=== PATIENT | female | born 1950 | race Caucasian/White ===

== ENCOUNTER → 2017-05-03 | Outpatient (CLI) | payer MEDICARE, OTHER | END | disposition home or self-care (01) | LOC: LABWHC1 08:58 | PROVIDERS: ATTEND Orthopaedic Surgery | DX: Z01.812 Encounter for preprocedural laboratory examination (principal) | CPT/HCPCS: 87070 ==

== ENCOUNTER → 2017-05-19 | Outpatient (CLI) | payer MEDICARE, OTHER ==
[2017-05-19 13:19] LABS: CHCM 33.8; HCT 39.8 % (34.0-46.0); HDW 2.57; HGB 13.5 gm/dL (11.4-16.0); MCH 30.2 pg (25.0-35.0); MCHC 33.9 g/dL (31.0-37.0); MCV 89.1 fL (80.0-100.0); Mean Platelet Volume 6.5; RBC 4.46 m/uL (3.80-5.40); WBC 7.3 k/uL (3.8-10.6)
[2017-05-19 13:27] LABS: Appearance,Urine Clear (Clear); Bilirubin,Urine Negative (Negative); Glucose,Urine (UA) Negative (Negative); Ketones,Urine Negative (Negative); Leukocyte Esterase,Urine Trace (Negative); Mucus,Urine Rare /hpf; Nitrite,Urine Negative (Negative); Particle Count 827; Protein,Urine Negative (Negative); Specific Gravity,Urine 1.008 (1.001-1.035); Squamous Epithelial Cell,Urine <1 /hpf (0-4); UA Billing (MACRO vs. MICRO) MICRO; Urobilinogen,Urine <2.0 mg/dL (<2.0); WBC,Urine 1 /hpf (0-5)
[2017-05-19 13:28] LABS: INR 1.1 (<1.2); Partial Thromboplastin Time 23.6 sec (22.0-30.0); Prothrombin Time 10.7 sec (9.0-12.0)
[2017-05-19 13:35] LABS: ALT 39 U/L (9-52); AST 25 U/L (14-36); Alkaline Phosphatase 78 U/L (38-126); Anion Gap 10 mmol/L; Blood Urea Nitrogen 19 mg/dL (7-17); Calcium 10.2 mg/dL (8.4-10.2); Carbon Dioxide 27 mmol/L (22-30); Chloride 104 mmol/L (98-107); Glucose 95 mg/dL (74-99); Non-African American GFR(MDRD) >60 (>60 ml/min/1.73 sqM); Potassium 4.4 mmol/L (3.5-5.1); Sodium 141 mmol/L (137-145); Total Bilirubin 0.6 mg/dL (0.2-1.3); Total Protein 7.3 g/dL (6.3-8.2)
== END | disposition home or self-care (01) ==
LOC: LABPAT 12:43
PROVIDERS: ATTEND Orthopaedic Surgery
DX: Z01.812 Encounter for preprocedural laboratory examination (principal); Z79.01 Long term (current) use of anticoagulants
CPT/HCPCS: 80053; 81001; 85027; 85610; 85730; 86850; 86900; 86901

== ENCOUNTER 2017-05-29 10:26 | Inpatient (IN) | payer BC, MEDICARE, OTHER ==
[2017-05-22 08:58] VITALS: BMI 26.5
[~2017-05-29 10:26] MED LIST: ACETAMINOPHEN TAB 500 MG TAB PO ONE; DEXAMETHASONE SOD PHOSPHATE 10 MG/ML 1 ML VIAL IV ONE; HYDROmorphone 1 MG/ML 1 ML SYRINGE IVP PRN; LACTATED RINGERS 1,000 ML IV SCH; MELOXICAM 7.5 MG TAB PO ONE; MIDAZOLAM 2 MG/2 ML VIAL IV PRN; ONDANSETRON 4 MG/2 ML VIAL IVP ONE; SCOPOLAMINE 1.5MG/72HR PATCH TRANSDERM ONE; TRANEXAMIC ACID 1,000 MG in SODIUM CHLORIDE 0.9% 100 ML IVPB ONE; ceFAZolin 2 GM in SODIUM CHLORIDE 0.9% 100 ML IVPB ONE
[2017-05-29 11:16] LABS: Glucose,Whole Blood 115 mg/dL (75-99)
[2017-05-29] MEDS ORDERED: LIDOCAINE 1% 20 ML VIAL (10MG/ML) FOR IV START INTRADERMA ONE (11:27)
[2017-05-29] MEDS ORDERED: SODIUM CHLORIDE 0.9% 100 ML BAG ONE (12:59)
[2017-05-29] MEDS ORDERED: TRANEXAMIC ACID 1,000 MG/10 ML VIAL ONE (12:59)
[2017-05-29] MEDS ORDERED: fentaNYL (PF) 50 MCG/ML 2 ML AMP ONE (12:59)
[2017-05-29] MEDS ORDERED: ceFAZolin 3,000 MG in SODIUM CHLORIDE 0.9% IRRIGATIO 3,000 ML IRRIGATION ONE (12:59)
[2017-05-29] MEDS ORDERED: MIDAZOLAM 2 MG/2 ML VIAL ONE (12:59)
[2017-05-29] MEDS ORDERED: PROPOFOL 10 MG/ML 20 ML VIAL IV ONE (12:59)
[2017-05-29] MEDS ORDERED: LACTATED RINGERS 1,000 ML IV ONE (13:37)
[2017-05-29] MEDS ORDERED: HYDROcodone/APAP 5-325MG 1 EACH TAB PO PRN (15:08)
[2017-05-29] MEDS ORDERED: hydrOXYzine PAMOATE 25 MG CAP PO PRN (15:08)
[2017-05-29] MEDS ORDERED: NALOXONE 0.4 MG/ML 1 ML VIAL IV PRN (15:08)
[2017-05-29] MEDS ORDERED: ONDANSETRON 4 MG/2 ML VIAL IVP PRN (15:08)
[2017-05-29] MEDS ORDERED: MAGNESIUM HYDROXIDE 2,400 MG/10 ML CUP PO PRN (15:08)
[2017-05-29] MEDS ORDERED: HYDROmorphone 1 MG/ML 1 ML SYRINGE IVP PRN ×3 (15:08)
--- NOTE | 2017-05-29 15:36 | XR ---
EXAMINATION TYPE: XR Hip Limited LT DATE OF EXAM: 05/29/2017 CLINICAL HISTORY: Left hip pain and osteoarthritis. TECHNIQUE: Single AP portable view of left hip is obtained immediately postoperatively. COMPARISON: None. FINDINGS: Metallic hardware from total left hip arthroplasty is seen and appears satisfactory in alig nment and position. There is evidence of recent surgery with subcutaneous gas noted laterally. IMPRESSION: Metallic hardware from total left hip arthroplasty is satisfactory in position.
[2017-05-29] MEDS: LACTATED RINGERS 1,000 ML IV SCH (15:49)
[2017-05-29 16:03] LABS: Glucose,Whole Blood 149 mg/dL (75-99)
--- NOTE | 2017-05-29 18:07 | P.OP ---
Date of Procedure: 05/29/17 Preoperative Diagnosis: Postoperative Diagnosis: Procedure(s) Performed: PREOPERATIVE DIAGNOSIS: Left hip severe osteoarthritis POSTOPERATIVE DIAGNOSIS: Left hip severe osteoarthritis OPERATION: Left hip total replacement arthroplasty (uncemented implantation with ceramic on polyethylene articulation). ANESTHESIA: Spinal ESTIMATED BLOOD LOSS: 250 ml. DATA CENTER PROJECT MANAGER: Jacqueline Adams PA-C (assistance with: patient positioning, retraction, exposure, hemostasis, leg positioning, implantation, irrigation, closure, dressing) COMPLICATIONS: None apparent. COMPONENTS IMPLANTED: Ameya continuum acetabular cup with cluster holes; continuum longevity 15 elevated liner, 32 mm id; Ameya VerSys Fiber Metal stem ; VerSys 32 mm femoral head with +7 mm neck length extension INDICATIONS: Mrs. Santos is a 67-year-old female with significant end-stage osteoarthritis involving the left hip and commensurate severe symptoms. She presents to the operating room today for total hip replacement. I have discussed the steps of the operation as well as potential risks and complications as being inclusive of, but not limited to: Leading, infection, scarring, discomfort, or vessel and/or nerve damage, need for further surgery, loosening, dislocation, wear, osteolysis, limb length inequality, fracture, blood clot, pulmonary embolism, , persistent limp, and other risks. The patient is aware these risks and wishes to proceed with surgery and has signed a consent form. PROCEDURE: After appropriate consent was obtained, the patient was taken to the operating room and placed in supine position. Spinal anesthetic was administered and after confirmation of adequate anesthesia, the patient was placed into the lateral decubitus position with the left side up. Care was taken to make sure that all pressure points were adequately padded and he was stabilized to the table with a [place] hip positioner. The left hip was prepped and draped in the usual aseptic fashion using a combination of ChloraPrep and alcohol. [place]an drape was used for the case and the patient received intravenous antibiotics prior to the incision. "Time out" was called , confirming patient identity, side, procedure, availability of implants and administration of antibiotics and TXA. The incision was created directly over the greater trochanter and carried slightly posteriorly for a posterior approach to the hip. The incision was then deepened down to subcutaneous tissue and fascia era. Fascia era was split in line with the incision and split proximally along the fibers of the gluteus moises. The underlying fibers of the muscle were teased apart using finger dissection and bleeding vessels were picked up and coagulated. Retractor was then placed posteriorly consisting of a blunt [place]. The short external rotators and capsule were exposed using good visualization of the attachment of the external rotators to the femur was established. The short external rotators and capsule were released using electrocautery from their femoral attachments. A hockey stick shaped incision was created in the capsule. Joint fluid was evacuated and the patient's hip was able to be dislocated fairly easily. The patient's femoral head was severely arthritic with eburnated bone present and a 360 degrees brennan of osteophytes. The femoral neck cut was created approximately 1 cm superior to the lesser trochanter using a reciprocating saw. The femoral head and neck fragment was removed and attention was then directed to the acetabulum. An anterior acetabular retractor was applied followed by posterior retraction of the capsule with a Meyerding retractor. This afforded good visualization into the acetabular cavity. Soft tissue was removed and residual cartilage within the acetabular vault was removed using a curette. Labrum was removed using a long-handled knife. Attention was then directed to reaming. The size 44 reamer was used first, followed by increasing increments until the final size reamer was used. Please see the implantation sheet for exact sizes used for the components. Once the final reamer had been utilized to expand the socket it was noted that there was a good supportive bone around the acetabular socket and no further reaming needed to be performed. The trial the same size as the last reamer used was then impacted into the acetabular vault and found to have good fit. The acetabular component, one size (2mm) greater than the trial was then called for. The cluster holes were placed posteriorly and the component was impacted in a position of approximately 40 degrees abduction and 20 degrees anteversion. This matched this patient's torres martinez anteversion and it was noted that the cup had excellent stability but I felt that one acetabular screw would provide additional security. This was placed without difficulty into one of the posterior superior holes. Attention was then directed to the acetabular liner. The anteversion and abduction angle of the component was noted to be very good. A 15 elevated was used and locked into position. Osteophytes around the posterior and inferior aspect of the acetabulum were trimmed as necessary to prevent any impingement. Attention was then directed back to the proximal femur. Retractors were placed around the proximal femur and box osteotome was used followed by canal finder and trochanteric reamer. Cylindrical reaming was performed. Progressive broaching was then performed starting with a #10 broach and progressing final size, in a position of 15 degrees anteversion. [place] anteversion was within 5 degrees of stem position. The final size broach had excellent fit and fill of the patient's metaphysis and diaphysis. Calcar planing was performed. Trial reduction was then performed starting with size 32 mm femoral head and various neck combination of stability, limb length equality, and soft tissue tension. Trial components were then removed. The canal was lavaged and the final size femoral stem component was impacted into position. The implant fit very well and had excellent stability. The femoral head was then impacted onto the Ramsey taper. Blood and debris were removed from the acetabular component and the hip was then reduced and checked for stability, limb length and soft tissue tension. These parameters found to be satisfactory, the wound was then thoroughly irrigated with normal saline and Aricept protocol. Final hemostasis was obtained using electrocautery and IV tranexamic acid, 1 g given at the time of prepping and draping, and another 1 g given at the time of closure. Closure of the capsule was performed meticulously using #3 Vicryl suture. Four figure-of -eight sutures were placed in the posterior capsule along with repair of the external rotators. The fascia era was then repaired using combination of #3 Vicryl suture in interrupted fashion and Quill and running fashion. 2-0 Vicryl suture was used for the subcutaneous tissues and 3-0 Quill for the skin. Dermabond or Steri-Strips were then applied. The patient tolerated the procedure well. There were no complications and the wound bed was dry and there was no need for drain placement. Sterile dressing was then applied and the patient was carefully removed from the operating room table, placed on the stretcher and was taken to the recovery room in stable condition. Sponge and needle counts were correct. Implants: Indications for Procedure: Operative Findings: Description of Procedure:
[2017-05-29 20:28] LABS: Glucose,Whole Blood 212 mg/dL (75-99)
[2017-05-29] MEDS: NAPROXEN 250 MG TAB PO SCH (21:28)
[2017-05-29] MEDS: SENNOSIDES-DOCUSATE SODIUM 1 EACH TAB PO SCH (21:31)
[2017-05-29] MEDS: ASPIRIN 325 MG TAB PO SCH (21:32)
[2017-05-29] MEDS: HYDROcodone/APAP 5-325MG 1 EACH TAB PO PRN (21:33)
[2017-05-29] MEDS: METOPROLOL SUCCINATE (ER) 25 MG TAB.ER.24H PO SCH (21:33)
[2017-05-29] MEDS: PRAVASTATIN SODIUM 40 MG TAB PO SCH (21:33)
[2017-05-29] MEDS: ceFAZolin 2 GM in SODIUM CHLORIDE 0.9% 100 ML IVPB SCH (21:34)
[2017-05-29] MEDS: INSULIN LISPRO (humaLOG) 300 UNIT/3 ML VIAL SQ SCH (21:36)
[2017-05-30] MEDS: LACTATED RINGERS 1,000 ML IV SCH ×3 (02:23→22:33)
[2017-05-30] MEDS: ceFAZolin 2 GM in SODIUM CHLORIDE 0.9% 100 ML IVPB SCH (04:38)
[2017-05-30 06:59] LABS: Glucose,Whole Blood 155 mg/dL (75-99)
[2017-05-30 07:48] LABS: Basophils % (A) 0 %; CH 29.4; CHCM 33.2; Eosinophils % (A) 0 %; HCT 32.2 % (34.0-46.0); HDW 2.58; HGB 10.7 gm/dL (11.4-16.0); Luc # (Auto) 0.09; Luc % (Auto) 1; Lymphocytes # (A) 1.1 k/uL (1.0-4.8); Lymphocytes % (A) 8 %; MCH 29.6 pg (25.0-35.0); MCHC 33.3 g/dL (31.0-37.0); MCV 88.9 fL (80.0-100.0); Mean Platelet Volume 6.5; Monocytes # (A) 0.5 k/uL (0-1.0); Monocytes % (A) 4 %; Neutrophils # (A) 12.5 k/uL (1.3-7.7); Neutrophils % (A) 87 %; RBC 3.62 m/uL (3.80-5.40); RDW 13.5 % (11.5-15.5); WBC 14.3 k/uL (3.8-10.6); WBC (Perox) 14.75
[2017-05-30] MEDS: clonazePAM 0.5 MG TAB PO SCH (08:02)
[2017-05-30] MEDS: NAPROXEN 250 MG TAB PO SCH ×2 (08:03→21:18)
[2017-05-30] MEDS: MELOXICAM 7.5 MG TAB PO SCH (08:03)
[2017-05-30] MEDS: ASPIRIN 325 MG TAB PO SCH ×2 (08:03→21:18)
[2017-05-30] MEDS: INSULIN LISPRO (humaLOG) 300 UNIT/3 ML VIAL SQ SCH ×4 (08:04→21:20)
[2017-05-30] MEDS: amLODIPine 5 MG TAB PO SCH (08:04)
[2017-05-30] MEDS: DULoxetine HCL 30 MG CAPSULE.DR PO SCH (08:04)
[2017-05-30] MEDS: HYDROcodone/APAP 5-325MG 1 EACH TAB PO PRN ×2 (08:54→15:40)
--- NOTE | 2017-05-30 09:44 | CONS ---
DATE OF CONSULTATION: 05/29/2107 REASON FOR CONSULTATION: Medical management requested by Dr. Whyte. CONSULTATION: This is a very pleasant 67-year-old patient whose chronic stable medical conditions include hypertension, hyperlipidemia, obstructive sleep apnea , uses CPAP machine, osteoarthritis. Patient also with diet controlled diabetic. The patient has undergone left total hip arthroplasty. Postprocedure the pain is controlled. No nausea, no vomiting. No chest pain. Patient has had a stress test recently that was negative. Denied any cardiac or respiratory symptoms. REVIEW OF SYSTEMS: CONSTITUTIONAL: None. HEENT: None. RESPIRATORY: None. CARDIOVASCULAR: None. GASTROINTESTINAL: None. GENITOURINARY: None. MUSCULOSKELETAL: Pain in the joints. DERMATOLOGICAL: None. HEMATOLOGICAL: None. LYMPHATIC: None. PSYCHIATRY: None. NEUROLOGICAL: None. PAST HISTORY: Hypertension, hyperlipidemia, obstructive sleep apnea, osteoarthritis, diet controlled diabetes. PAST SURGICAL HISTORY: Appendectomy, cholecystectomy, surgery for ruptured ovarian cyst, bowel surgery to remove scar tissue. SOCIAL HISTORY: Smoked a pack for 10 years. Stopped 30-years ago. . Alcohol rarely. FAMILY HISTORY: Reviewed. Cancer, type unknown. HOME MEDICATIONS: 1. Klonopin 0.5 mg daily. 2. Norvasc 5 mg p.o daily. 3. Pravachol 40 mg q.h.s 4. Aleve 220 mg bid 5. Centrum 1 tablet p.o daily. 6. Toprol XL 25 mg q.h.s 7. Cymbalta 30 mg p.o daily. 8. Cranberry 500 mg p.o daily. 9. Cinnamon 2000 mg p.o daily. 10. Aspirin 81 mg p.o daily. 11. Senokot S 1 tablet p.o bid 12. [place] 5 p.r.n ALLERGIES: None. On examination, temperature 98, pulse 54, respirations 16, blood pressure 115/57 , pulse ox 95% on room air. GENERAL APPEARANCE: Average build, lying in bed comfortable, awake. EYES: Pupils equal, conjunctivae normal. HEENT: Oral cavity normal. NECK: JVD not raised. Mass not palpable. RESPIRATORY: Effort normal. LUNGS: Clear. CARDIOVASCULAR: Fist and second sounds are normal. No edema. ABDOMEN: Soft, nontender. Liver and spleen not palpable. LYMPHATIC: No lymph node in neck or axillae. PSYCHIATRIC: Alert, oriented x3. Mood and affect normal. NEUROLOGICAL: Pupils equal. Cranial nerves grossly intact. Power and sensation grossly intact. EXTREMITIES: Dressing over the left hip. ( ) especially in the hands. INVESTIGATIONS: Accu-Cheks 115, 149. Patients blood work from 05/19/17 showed hemoglobin 13.5, potassium 4.4, BUN 19, creatinine 0.70. ASSESSMENT: 1. Left total hip arthroplasty. 2. Essential hypertension. 3. Hyperlipidemia. 4. Obstructive sleep apnea uses CPAP machine. 5. Primary osteoarthritis with multiple joints. 6. Diet controlled diabetes mellitus type 2. PLAN: Home medications are resumed. For DVT prophylaxis the patient has Venodyne boots in place and anticoagulation per Orthopedic Team. Care was discussed with the patient. Questions were answered. Patient has a CPAP machine from home. Resume the same. Thank you Dr. Whyte. WANDER
[2017-05-30 11:43] LABS: Glucose,Whole Blood 158 mg/dL (75-99)
[2017-05-30 11:53] LABS: Hemoglobin A1C 6.1 % (4.2-6.1)
[2017-05-30] MEDS ORDERED: MULTIVITAMINS, THERA 1 EACH TAB PO SCH (12:00)
--- NOTE | 2017-05-30 12:01 | P.PN ---
Subjective Principal diagnosis: Status post left total hip arthroplasty This is a pleasant 67-year-old female who is status post left total hip arthroplasty. This is postoperative day #1. Patient was examined at bedside. Patient states her pain is well controlled and she has been up and walking with physical therapy without difficulty. Patient denies any numbness, weakness or tingling. Patient denies any new complaints. Objective - Vital Signs Vital signs: Vital Signs Temp 98.1 F 05/30/17 07:00 Pulse 55 L 05/30/17 07:00 Resp 16 05/30/17 07:00 BP 112/60 05/30/17 07:00 Pulse Ox 95 05/30/17 10:09 Intake & Output 05/29/17 05/30/17 05/30/17 18:59 06:59 18:59 Intake Total 1301 480 Output Total 250 450 Balance 1051 -450 480 Weight 83.915 kg Intake: IV 1301 Oral 480 Output: Urine 450 Estimated Blood Loss 250 Other: Voiding Method Toilet Toilet # Voids 1 - Exam Vital signs are stable. Patient is in no acute distress and is alert and oriented 3. Calf is soft and nontender. Incision is clean, dry, and intact. Neurovascular status intact. Patient has full foot and ankle motion. - Labs CBC & Chem 7: 05/30/17 06:45 Labs: Abnormal Lab Results - Last 24 Hours (Table) 05/29/17 05/29/17 05/30/17 Range/Units 16:01 20:21 06:45 WBC 14.3 H (3.8-10.6) k/uL RBC 3.62 L (3.80-5.40) m/uL Hgb 10.7 L (11.4-16.0) gm/dL Hct 32.2 L (34.0-46.0) % Neutrophils # 12.5 H (1.3-7.7) k/uL POC Glucose (mg/dL) 149 H 212 H (75-99) mg/dL 05/30/17 05/30/17 Range/Units 06:55 11:31 WBC (3.8-10.6) k/uL RBC (3.80-5.40) m/uL Hgb (11.4-16.0) gm/dL Hct (34.0-46.0) % Neutrophils # (1.3-7.7) k/uL POC Glucose (mg/dL) 155 H 158 H (75-99) mg/dL Assessment and Plan (1) S/P total hip arthroplasty Status: Acute (2) Primary osteoarthritis of left hip Status: Acute Plan: Continue routine postop care. Continue antocoagulation. Weightbearing as tolerated with a walker Continue hip precautions and use of abductor pillow. Daily dressing changes, keep incision clean and dry Possible discharge home tomorrow.
--- NOTE | 2017-05-30 17:19 | P.CONS ---
History of Present Illness - Reason for Consult Consult date: 05/30/17 Prophylactic radiation Requesting physician: Mario Whyte - Chief Complaint Recent Surgery - History of Present Illness Mrs. Santos is a 67-year-old female with significant end-stage osteoarthritis involving the left hip. She underwent left hip total replacement arthroplasty and is postoperative day #1. Patient states her pain is well controlled and she has been up and walking with physical therapy without difficulty. Patient denies any numbness, weakness or tingling. Patient denies any new complaints. Review of Systems Constitutional: Reports as per HPI Eyes: denies blurred vision, denies pain Musculoskeletal: Reports gait dysfunction, Reports limitation of motion, Reports redness of joints, Denies myalgias Musculoskeletal: left: hip pain, hip stiffness, hip swelling Neurological: Denies numbness, Denies weakness Past Medical History Past Medical History: Hyperlipidemia, Hypertension, Sleep Apnea/CPAP/BIPAP Additional Past Medical History / Comment(s): arthritis, diet control diabetic, bulging disk History of Any Multi-Drug Resistant Organisms: None Reported Past Surgical History: Appendectomy, Cholecystectomy, Orthopedic Surgery Additional Past Surgical History / Comment(s): surgery for ruptured ovarian cyst , bowel surgery to remove scar tissue, rt knee arthroscopy Past Anesthesia/Blood Transfusion Reactions: Blood Transfusion Reaction, Motion Sickness Additional Past Anesthesia/Blood Transfusion Reaction / Comm: GOT BAD HIVES AND ITCHING FROM BLOOD TRANSFUSION YEARS AGO. Past Psychological History: No Psychological Hx Reported Smoking Status: Former smoker Past Alcohol Use History: Rare Additional Past Alcohol Use History / Comment(s): quit smoking 30 yrs ago, smoked for 10 yrs, <1 PPD Past Drug Use History: None Reported - Past Family History Sister(s) Family Medical History: Cancer Medications and Allergies Home Medications Medication Instructions Recorded Confirmed Type DULoxetine HCL [Cymbalta] 30 mg PO DAILY 04/15/14 05/29/17 History Metoprolol Succinate [Toprol XL] 25 mg PO HS 04/15/14 05/29/17 History Multivitamin/Iron/Folic Acid 1 tab PO DAILY 04/15/14 05/29/17 History [Centrum Complete Multivit Tab] Pravastatin Sodium [Pravachol] 40 mg PO HS 04/15/14 05/29/17 History amLODIPine BESYLATE [Norvasc] 5 mg PO DAILY 04/15/14 05/29/17 History clonazePAM [KlonoPIN] 0.5 mg PO QAM 04/15/14 05/29/17 History Aspirin [Adult Low Dose Aspirin EC] 81 mg PO DAILY 05/22/17 05/29/17 History Cinnamon Bark [Cinnamon] 2,000 mg PO DAILY 05/22/17 05/29/17 History Cranberry Fruit Extract [Cranberry] 500 mg PO DAILY 05/22/17 05/29/17 History Naproxen Sodium [Aleve] 220 mg PO BID 05/22/17 05/29/17 History Allergies Allergy/AdvReac Type Severity Reaction Status Date / Time No Known Allergies Allergy Verified 05/29/17 15:29 Physical Exam Vitals: Vital Signs Temp Pulse Resp BP Pulse Ox 05/30/17 14:27 97.4 F L 58 L 17 127/57 96 05/30/17 10:09 95 05/30/17 07:00 98.1 F 55 L 16 112/60 96 05/30/17 01:18 98.1 F 61 16 121/69 96 05/29/17 20:05 97.9 F 67 16 146/71 96 05/29/17 17:41 64 116/62 05/29/17 17:30 59 L 137/51 05/29/17 17:15 67 129/57 Intake and Output 05/30/17 05/30/17 05/30/17 06:59 14:59 22:59 Intake Total 1220 Balance 1220 Intake: Oral 1220 Other: Voiding Method Toilet # Voids 1 - Constitutional General appearance: average body habitus - EENT Eyes: EOMI - Respiratory Respiratory: bilateral: CTA - Cardiovascular Rhythm: regular Heart sounds: normal: S1, S2 Results CBC & Chem 7: 05/30/17 06:45 Labs: Abnormal Lab Results - Last 24 Hours (Table) 05/29/17 05/30/17 05/30/17 Range/Units 20:21 06:45 06:55 WBC 14.3 H (3.8-10.6) k/uL RBC 3.62 L (3.80-5.40) m/uL Hgb 10.7 L (11.4-16.0) gm/dL Hct 32.2 L (34.0-46.0) % Neutrophils # 12.5 H (1.3-7.7) k/uL POC Glucose (mg/dL) 212 H 155 H (75-99) mg/dL 05/30/17 Range/Units 11:31 WBC (3.8-10.6) k/uL RBC (3.80-5.40) m/uL Hgb (11.4-16.0) gm/dL Hct (34.0-46.0) % Neutrophils # (1.3-7.7) k/uL POC Glucose (mg/dL) 158 H (75-99) mg/dL Assessment and Plan Plan: Ms. Santos is a pleasant 67 year old female status post left hip arthroplasty who now presents for external beam radiation to the left hip and surrounding tissues to decrease her risk of heterotrophic ossification. Post operative RT has been shown to be an effective treatment in preventing abnormal ossification of bone resulting in an ankylosed joint. We therefore intend to deliver a single fraction of 700cGy with 23MV photons in an AP/PA field arrangement. A discussion of the risks and side effects of therapy were had, but not limited to : Skin redness, irritation, fertility changes, and risk of second malignancy. Patient was informed have she questions or concerns she can see us at any time.
[2017-05-30 18:03] LABS: Glucose,Whole Blood 120 mg/dL (75-99)
--- NOTE | 2017-05-30 18:17 | PN ---
DATE OF SERVICE: 05/30/2017 PRESENTING COMPLAINT: Left hip surgery. INTERVAL HISTORY: This patient is status post left total hip arthroplasty; stable. Did tolerate her diet. No nausea or vomiting. No chest pain. Some pain is present. Sitting up on a chair. Review of systems done for constitutional, cardiovascular, GI, pulmonary, musculoskeletal; relevant findings as above. Current medications are reviewed. On examination, temperature 98.1, pulse 55, respiration 16, blood pressure 112/ 60, pulse ox 96% on room air. GENERAL APPEARANCE: Sitting up on a chair, comfortable. EYES: Pupils equal. Conjunctivae normal. NECK: JVD not raised. Mass not palpable. RESPIRATORY: Effort normal. Lungs are clear. CARDIOVASCULAR: First and second sounds normal. No edema. ABDOMEN: Soft, non-tender. Liver and spleen not palpable. PSYCHIATRIC: Alert and oriented x3. Mood and affect normal. INVESTIGATIONS: White count 14.3, hemoglobin 10.7. ASSESSMENT: 1. Left total hip arthroplasty. 2. Essential hypertension. 3. Hyperlipidemia. 4. Obstructive sleep apnea; uses CPAP machine. 5. Primary osteoarthritis of multiple joints. 6. Diet-controlled diabetes mellitus, type 2. 7. Leukocytosis, reactive, from surgery. No evidence of infection. 8. Acute blood loss anemia, as expected from surgery. PLAN: Continue current medications and treatment plan. Care was discussed with the patient. Encouraged to ambulate. MTDD
[2017-05-30 20:11] LABS: Glucose,Whole Blood 139 mg/dL (75-99)
[2017-05-30] MEDS: METOPROLOL SUCCINATE (ER) 25 MG TAB.ER.24H PO SCH (21:18)
[2017-05-30] MEDS: PRAVASTATIN SODIUM 40 MG TAB PO SCH (21:19)
[2017-05-30] MEDS: SENNOSIDES-DOCUSATE SODIUM 1 EACH TAB PO SCH (21:19)
[2017-05-30] MEDS ORDERED: TEMAZEPAM 15 MG CAP PO PRN (22:00)
[2017-05-31 07:19] LABS: Glucose,Whole Blood 111 mg/dL (75-99)
[2017-05-31 08:06] VITALS: BP 117/56; RESP 18; TEMP 97.9
[2017-05-31] MEDS: clonazePAM 0.5 MG TAB PO SCH (08:07)
[2017-05-31] MEDS: MELOXICAM 7.5 MG TAB PO SCH (08:07)
[2017-05-31] MEDS: NAPROXEN 250 MG TAB PO SCH (08:07)
[2017-05-31] MEDS: ASPIRIN 325 MG TAB PO SCH (08:07)
[2017-05-31] MEDS: DULoxetine HCL 30 MG CAPSULE.DR PO SCH (08:07)
[2017-05-31] MEDS: amLODIPine 5 MG TAB PO SCH (08:08)
[2017-05-31] MEDS: HYDROcodone/APAP 5-325MG 1 EACH TAB PO PRN (08:08)
[2017-05-31] MEDS: INSULIN LISPRO (humaLOG) 300 UNIT/3 ML VIAL SQ SCH (08:08)
--- NOTE | 2017-05-31 09:05 | P.DS ---
Providers Date of admission: 05/29/17 10:40 Expected date of discharge: 05/31/17 Attending physician: Mario Whyte Consults: 05/29/17 15:18 Consult Physician Urgent Consulting Provider: Liban Mcgrath Consult Reason/Comments: radiation tx left hip Do you want consulting provider notified?: Yes Consult Physician Urgent Consulting Provider: Schuyler Felder Consult Reason/Comments: medical management Do you want consulting provider notified?: Yes Primary care physician: Enoc Santizo - Discharge Diagnosis(es) (1) Primary osteoarthritis of left hip Current Visit: Yes Status: Acute (2) S/P total hip arthroplasty Current Visit: Yes Status: Acute Hospital Course: This is a 67-year-old female with known history of degenerative arthritis of the left hip. The patient presents for evaluation. After discussion and consideration patient elects to proceed with total hip arthroplasty. The patient is seen preoperatively by Dr. Santizo and cleared for surgery. Patient is admitted to [facility] on 05/29/2017 for total hip arthroplasty. The procedures performed without complication or sequelae. The patient is doing well postoperatively. She had 1 dose of radiation to the left hip for heterotopic ossification prophylaxis. Labs and vital signs are stable on day of discharge. On day of discharge patient's hip incision is healing well. There is minimal erythema. There is no drainage noted at this time. There is minimal soft tissue swelling to the hip and thigh. Patient has full foot and ankle motion without difficulty or pain. Neurovascular status to the left lower extremity is intact. Patient is discharged to home in good condition. Please see med rec for accurate list of home medications. Patient Condition at Discharge: Good Plan - Discharge Summary New Discharge Prescriptions: New Aspirin 325 mg PO BID #120 tab HYDROcodone/APAP 5-325MG [[place] 5-325] 1 - 2 each PO Q4-6H PRN #90 tab PRN Reason: Pain Sennosides-Docusate Sodium [Senokot-S] 1 tab PO BID #60 tablet No Action DULoxetine HCL [Cymbalta] 30 mg PO DAILY amLODIPine BESYLATE [Norvasc] 5 mg PO DAILY Pravastatin Sodium [Pravachol] 40 mg PO HS Metoprolol Succinate [Toprol XL] 25 mg PO HS clonazePAM [KlonoPIN] 0.5 mg PO QAM Multivitamin/Iron/Folic Acid [Centrum Complete Multivit Tab] 1 tab PO DAILY Aspirin [Adult Low Dose Aspirin EC] 81 mg PO DAILY Naproxen Sodium [Aleve] 220 mg PO BID Cinnamon Bark [Cinnamon] 2,000 mg PO DAILY Cranberry Fruit Extract [Cranberry] 500 mg PO DAILY Discharge Medication List DULoxetine HCL [Cymbalta] 30 mg PO DAILY 04/15/14 [History] Metoprolol Succinate [Toprol XL] 25 mg PO HS 04/15/14 [History] Multivitamin/Iron/Folic Acid [[place] Complete Multivit Tab] 1 tab PO DAILY [History] Pravastatin Sodium [Pravachol] 40 mg PO HS 04/15/14 [History] amLODIPine BESYLATE [Norvasc] 5 mg PO DAILY 04/15/14 [History] clonazePAM [KlonoPIN] 0.5 mg PO QAM 04/15/14 [History] Aspirin [Adult Low Dose Aspirin EC] 81 mg PO DAILY 05/22/17 [History] Cinnamon Bark [Cinnamon] 2,000 mg PO DAILY 05/22/17 [History] Cranberry Fruit Extract [Cranberry] 500 mg PO DAILY 05/22/17 [History] Naproxen Sodium [Aleve] 220 mg PO BID 05/22/17 [History] Aspirin 325 mg PO BID #120 tab 05/29/17 [Rx] HYDROcodone/APAP 5-325MG [[place] 5-325] 1 - 2 each PO Q4-6H PRN #90 tab 05/29/17 [Rx] Sennosides-Docusate Sodium [Senokot-S] 1 tab PO BID #60 tablet 05/29/17 [Rx] Follow up Appointment(s)/Referral(s): Jacqueline Adams, AGUSTINA [PHYSICIAN [place]] - 2 Weeks Activity/Diet/Wound Care/Special Instructions: 50% wt bearing w walker LLE. May shower if no drainage from incision. [facility]: #[phone] Discharge Disposition: HOME WITH HOME HEALTH SERVICES
[2017-05-31 10:31] VITALS: PULSE 60
[2017-05-31 11:30] LABS: Glucose,Whole Blood 112 mg/dL (75-99)
--- NOTE | 2017-05-31 13:22 | PN ---
DATE OF SERVICE: 05/31/17 PRESENTING COMPLAINT: Left hip surgery. INTERVAL HISTORY: The patient is status post left hip arthroplasty surgery, up in the hallway. No nausea or vomiting. Pain is controlled. Tolerating breakfast. Review of systems done for constitutional, cardiovascular, GI, pulmonary, musculoskeletal, relevant findings as above. Current medications are reviewed. On examination, temperature 97.9, pulse 54. Respirations 18. Blood pressure 117/56. Pulse ox 97% on room air. General appearance sitting up in a chair, comfortable. Eyes: Pupils equal, conjunctivae normal. Neck JVD not raised. Mass not palpable. Respiratory effort normal. Lungs clear. Cardiovascular: First and second sounds normal. No edema. Abdomen soft, nontender. Liver and spleen not palpable. PSYCH: Alert and oriented times three. Mood and affect normal. Investigations: Accu-Cheks noted. ASSESSMENT: 1. Left total hip arthroplasty. 2. Essential hypertension. 3. Hyperlipidemia. 4. Obstructive sleep apnea uses CPAP machine. 5. Primary osteoarthritis multiple joints. 6. Diet controlled diabetes mellitus, type 2. 7. Leukocytosis reactive from surgery. No evidence of infection. 8. Acute blood loss anemia as expected from surgery. PLAN: The patient doing well. Care was discussed with her. Questions were answered. Thank you Dr. Whyte. WANDER
== END 2017-05-31 12:41 | disposition home health service (06) | DRG 470 ==
LOC: 2ORMAIN 10:40 → 3SUR 15:07
PROVIDERS: ADMIT Orthopaedic Surgery; ATTEND Orthopaedic Surgery
PROC: 0SRB04A Replacement of Left Hip Joint with Ceramic on Polyethylene Synthetic Substitute, Uncemented, Open Approach (ICD-10-PCS; principal; 2017-05-29 12:30)
DX: M16.12 Unilateral primary osteoarthritis, left hip (principal); D62 Acute posthemorrhagic anemia; I10 Essential (primary) hypertension; D72.829 Elevated white blood cell count, unspecified; E11.9 Type 2 diabetes mellitus without complications; F32.9 Major depressive disorder, single episode, unspecified; E78.2 Mixed hyperlipidemia; G47.33 Obstructive sleep apnea (adult) (pediatric); M47.9 Spondylosis, unspecified; M51.36 Other intervertebral disc degeneration, lumbar region; Z79.82 Long term (current) use of aspirin; Z79.899 Other long term (current) drug therapy; Z87.891 Personal history of nicotine dependence; Z82.49 Family history of ischemic heart disease and other diseases of the circulatory system
CPT/HCPCS: 73501; 77290; 77307; 77334; 77412; 83036; 85025; 86850; 86900; 86901; 88300; 94760

== ENCOUNTER → 2018-06-11 | Outpatient (CLI) | payer MEDICARE, OTHER ==
--- NOTE | 2018-06-12 09:12 | MM ---
Reason for exam: additional evaluation requested from prior study. Last mammogram was performed 2 years and 6 months ago. History: Patient is postmenopausal and had first child at age 40. Family history of breast cancer in sister at age 59. Physical Findings: Nurse did not find any significant physical abnormalities on exam. MG 3D Diag Mammo W/Cad LORENA Bilateral CC and MLO view(s) were taken. Prior study comparison: December 03, 2015, right breast MG 3d work up w/cad RT. November 27, 2015, bilateral MG screening mammo w CAD. January 10, 2014, bilateral digital screening mammo w/CAD. The breast tissue is heterogeneously dense. This may lower the sensitivity of mammography. There are a group of left inner quadrant calcification oriented in a linear distribution increased from priors for which a biopsy is recommended. These extend over 2.8 cm in length on the CC view. Addition Upper inner quadrant anterior depth calcifications may be vascular and a 6 month follow up is recommended post biopsy results of the 2.8 cm group. These results were verbally communicated with the patient and result sheet given to the patient on 06/11/18. ASSESSMENT: Suspicious, BI-RAD 4 RECOMMENDATION: Stereotactic core biopsy of the right breast. Called Dr. Pickett with mammographic findings and has scheduled an appointment for the patient for 06/19/18 at 2:45pm with Dr Rangel. PRELIMINARY REPORT CALLED AND FAXED TO DR. RANGEL ON 06/11/18.
== END | disposition home or self-care (01) ==
LOC: RADMAMWWP 10:46
PROVIDERS: ATTEND Obstetrics & Gynecology
DX: R92.8 Other abnormal and inconclusive findings on diagnostic imaging of breast (principal)
CPT/HCPCS: 77066; G0279; 77062

== ENCOUNTER → 2018-07-09 | Day surgery (SDC) | payer MEDICARE, OTHER ==
[2018-07-09 12:26] VITALS: RESP 16; BMI 25.8
[2018-07-09 14:56] VITALS: BP 165/68; PULSE 55; TEMP 97.6
--- NOTE | 2018-07-09 15:32 | MM ---
Stereotactic Mammotome core biopsy right breast. HISTORY: Indeterminate microcalcifications The calcifications in question within the right breast were targeted by the undersigned. Procedure was performed by the undersigned. Informed consent was obtained and all of the patients questions were answered. The standard sterile technique was utilized and appropriate local anesthesia was obtained with 1% lidocaine. Mammotome probe was advanced and multiple core samples were obtained and sent to pathology for interpretation. Microclip marker was deployed at the site of biopsy. Post procedural mammogram demonstrates appropriate deployment of radiopaque clip marker. The patient tolerated the procedure well and left the department in stable condition. Pathology results are pending. IMPRESSION: Successful stereotactic core biopsy right breast with pathology results pending. 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 See Surgical Pathology Cancer Case Summary and Comment. Recommendation Surgical consult of the right breast. (appropriate therapy and follow up) WANDER
== END ==
LOC: RADMAMWWP 11:58
PROVIDERS: ATTEND Surgery
DX: D05.11 Intraductal carcinoma in situ of right breast (principal)
CPT/HCPCS: 88305; 88342; 88341; 19081; A4648; J2001

== ENCOUNTER → 2018-07-18 | Outpatient (CLI) | payer MEDICARE, OTHER ==
--- NOTE | 2018-07-19 11:33 | USB ---
Reason for exam: clinical finding. History: Patient is postmenopausal, has history of breast cancer at age 68, and had first child at age 40. Family history of breast cancer in sister at age 59. Malignant MG stereo VAD BX RT of the right breast, July 09, 2018. Physical Findings: Nurse Summary: Patient complains of left breast achyness x 3 months (nurse mj). US Breast BILAT Right complete breast ultrasound includes all four quadrants, the retroareolar region and axilla. Finding demonstrates debris within duct at posterior nipple. Left complete breast ultrasound includes all four quadrants, the retroareolar region and axilla. Finding demonstrates a 0.4 x 0.3 x 0.3cm cystic lesion at 3 o'clock, a 0.8 x 0.4 x 0.6cm cystic cluster at 4 o'clock and a 0.6 x 0.3 x 0.5cm mixed lesion too small to characterize at 10 o'clock. These results were verbally communicated with the patient and result sheet given to the patient on 07/18/18. ASSESSMENT: Probably benign, BI-RAD 3 RECOMMENDATION: Ultrasound of the left breast in 6 months.
== END | disposition home or self-care (01) ==
LOC: RADUSWWP 14:58
PROVIDERS: ATTEND Surgery
DX: N60.02 Solitary cyst of left breast (principal)

== ENCOUNTER 2018-07-20 06:40 | Day surgery (SDC) | payer MEDICARE, OTHER ==
[2018-07-17 15:10] VITALS: BMI 24.7
[~2018-07-20 06:40] MED LIST changes: -ACETAMINOPHEN TAB 500 MG TAB PO ONE; +HEPARIN SODIUM,PORCINE 5,000 UNIT/ML 1 ML VIAL SQ ONE; -HYDROmorphone 1 MG/ML 1 ML SYRINGE IVP PRN; -MELOXICAM 7.5 MG TAB PO ONE; +Pre Op ABX Message 1 EACH MISC MISCELLANE ONE; -SCOPOLAMINE 1.5MG/72HR PATCH TRANSDERM ONE; -TRANEXAMIC ACID 1,000 MG in SODIUM CHLORIDE 0.9% 100 ML IVPB ONE; -ceFAZolin 2 GM in SODIUM CHLORIDE 0.9% 100 ML IVPB ONE; +fentaNYL (PF) 50 MCG/ML 2 ML AMP IV PRN
[2018-07-20] MEDS ORDERED: ALPRAZolam 0.25 MG TAB PO ONE (07:46)
[2018-07-20] MEDS ORDERED: LIDOCAINE 1% 20 ML VIAL (10MG/ML) FOR IV START INTRADERMA ONE (07:48)
[2018-07-20 07:52] LABS: Glucose,Whole Blood 125 mg/dL (75-99)
--- NOTE | 2018-07-20 07:53 | P.GSHP ---
History of Present Illness H&P Date: 07/20/18 Chief Complaint: Right breast cancer This is a 68-year-old female referred from Dr. Santizo. Patient was recently diagnosed with right breast invasive ductal carcinoma on stereotactic core biopsy. Patient presents today for right breast lumpectomy with sentinel node biopsy. Past Medical History Past Medical History: Hyperlipidemia, Hypertension, Sleep Apnea/CPAP/BIPAP Additional Past Medical History / Comment(s): arthritis, diet control diabetic, bulging disc in back History of Any Multi-Drug Resistant Organisms: None Reported Past Surgical History: Cholecystectomy, Orthopedic Surgery Additional Past Surgical History / Comment(s): BOWEL SURGERY TO REMOVE SCAR TISSUE FROM PREVIOUS OVARIAN CYST. Left hip replacement 2017 Past Anesthesia/Blood Transfusion Reactions: Blood Transfusion Reaction Additional Past Anesthesia/Blood Transfusion Reaction / Comment(s): HIVES FROM BLOOD TRANSFUSION YEARS AGO. Smoking Status: Former smoker - Past Family History Sister(s) Family Medical History: Cancer Medications and Allergies Home Medications Medication Instructions Recorded Confirmed Type DULoxetine HCL [Cymbalta] 30 mg PO DAILY 04/15/14 07/20/18 History Metoprolol Succinate [Toprol XL] 25 mg PO HS 04/15/14 07/20/18 History Multivitamin/Iron/Folic Acid 1 tab PO DAILY 04/15/14 07/20/18 History [Centrum Complete Multivit Tab] Pravastatin Sodium [Pravachol] 40 mg PO HS 04/15/14 07/20/18 History amLODIPine BESYLATE [Norvasc] 5 mg PO DAILY 04/15/14 07/20/18 History clonazePAM [KlonoPIN] 0.5 mg PO HS 04/15/14 07/20/18 History Aspirin [Adult Low Dose Aspirin EC] 81 mg PO DAILY 05/22/17 07/20/18 History Cinnamon Bark [Cinnamon] 2,000 mg PO DAILY 05/22/17 07/20/18 History Cranberry Fruit Extract [Cranberry] 500 mg PO DAILY 05/22/17 07/20/18 History Naproxen Sodium [Aleve] 220 mg PO BID 05/22/17 07/20/18 History Calcium Carbonate [Calcium] 600 mg PO DAILY 07/17/18 07/20/18 History Allergies Allergy/AdvReac Type Severity Reaction Status Date / Time latex Allergy Itching Verified 07/20/18 07:28 Surgical - Exam Vital Signs Temp Pulse Resp BP Pulse Ox 97.8 F 57 L 18 167/72 96 07/20/18 07:17 07/20/18 07:17 07/20/18 07:17 07/20/18 07:17 07/20/18 07:17 - General well developed, well nourished, no distress - Eyes PERRL - ENT normal pinna - Neck no masses - Respiratory normal expansion - Cardiovascular Rhythm: regular - Abdomen Abdomen: soft, non tender Breast exam is within normal limits. There is no masses palpated. There is no cervical or axillary lymphadenopathy. Assessment and Plan Assessment: Recently diagnosed right breast cancer. Patient will undergo right breast lumpectomy with sentinel node biopsy.
[2018-07-20] MEDS ORDERED: LIDOCAINE 1% INJ 10MG/ML (20 ML MDV) SQ ONE (08:19)
[2018-07-20] MEDS ORDERED: SODIUM BICARB 4% 5 ML VIAL (0.48 MEQ/ML) MISCELLANE ONE (08:19)
[2018-07-20] MEDS ORDERED: KETOROLAC 30 MG/ML 1 ML VIAL ONE (09:38)
[2018-07-20] MEDS ORDERED: PROPOFOL 10 MG/ML 20 ML VIAL IV ONE (09:38)
[2018-07-20] MEDS ORDERED: LIDOCAINE 1% INJ 10MG/ML (20 ML MDV) ONE (09:38)
[2018-07-20] MEDS ORDERED: fentaNYL (PF) 50 MCG/ML 2 ML AMP ONE (09:38)
[2018-07-20] MEDS ORDERED: GLYCOPYRROLATE 0.2 MG/ML 2 ML VIAL ONE (09:38)
[2018-07-20] MEDS ORDERED: MIDAZOLAM 2 MG/2 ML VIAL ONE (09:38)
[2018-07-20] MEDS ORDERED: ePHEDrine SULFATE/0.9% NACL/PF 50 MG/5 ML SYRINGE IV ONE (09:38)
--- NOTE | 2018-07-20 10:01 | NM ---
EXAMINATION TYPE: NM sentinel node injection DATE OF EXAM: 07/20/2018 COMPARISON: NONE HISTORY: RIGHT BREAST CANCER TECHNIQUE AND FINDINGS: The procedure of sentinel lymph node injection was explained to the patient. The benefits, alternatives, and risks were discussed. An informed consent was then obtained. Overlying skin is cleaned with sterile alcohol. Following this, 548 uCi [id number] Tilmanocept was inject ed in the upper outer aspect of the right nipple intradermally. The patient tolerated the procedure well without any immediate complication. The patient was kept in the radiology department for short stay after the procedure and then taken to surgery for surgical p rocedure what is presumed intraoperative gamma probe will be used for sentinel lymph node detection. IMPRESSION: Right breast radiotracer injection for sentinel node localization as above.
[2018-07-20] MEDS ORDERED: METHYLENE BLUE 10 MG/ML (10 ML VIAL) INJ ONE (10:03)
[2018-07-20] MEDS ORDERED: SODIUM CHLORIDE 0.9% 50 ML with ceFAZolin 2,000 MG IV ONE ×2 (10:27)
[2018-07-20] MEDS ORDERED: LACTATED RINGERS 1,000 ML IV ONE (10:50)
[2018-07-20] MEDS ORDERED: BUPIVACAIN-EPI 0.5%-1:200,000 30 ML VIAL SQ ONE (10:50)
[2018-07-20] MEDS ORDERED: NALOXONE 0.4 MG/ML 1 ML VIAL IV PRN (11:38)
[2018-07-20] MEDS ORDERED: HYDROmorphone 1 MG/ML 1 ML SYRINGE IVP PRN (11:38)
[2018-07-20] MEDS ORDERED: ONDANSETRON 4 MG/2 ML VIAL IVP PRN (11:38)
[2018-07-20] MEDS ORDERED: HYDROcodone/APAP 5-325MG 1 EACH TAB PO PRN (11:38)
[2018-07-20] MEDS ORDERED: KETOROLAC 30 MG/ML 1 ML VIAL IVP SCH (12:00)
--- NOTE | 2018-07-20 12:23 | MM ---
EXAMINATION TYPE: MG pre op needle loc RT, MG surgical specimen RT DATE OF EXAM: 07/20/2018 8:53 AM COMPARISON: NONE HISTORY: Right breast malignancy Informed consent was obtained and all the patient's questions were answered. The clip in question was localized mammographically. The standard sterile technique was utilized, as well as appropriate local anesthesia with 1% Lidocaine and bicarbonate. Localization needle followed by placement of a guidewire was performed under mammographic guidance. Verification images demonstrate appropriate deployment of the guidewire. The patient tolerated the procedure well and left the department in stable condition. Specimen radiograph demonstrates the clip in question to reside within the specimen. IMPRESSION: Successful needle localization and open biopsy right breast with pathology results pending. Pathology Results: Malignant A. SENTINEL LYMPH NODE #1, BIOPSY: Lymph node negative for metastasis. CK7 and NITESH immunoperoxidase stains are confirmatory (controls appropriate). B. RIGHT AXILLARY CONTENTS: Six lymph nodes negative for metastasis. C. BREAST, RIGHT, LUMPECTOMY: Microinvasive ductal carcinoma arising in a background of extensive ductal carcinoma in situ (DCIS). Margins negative for invasive malignancy. DCIS closely approximates the blue inked/anterior margin ( much less than 1 mm from anterior margin). Intraductal papilloma involved by DCIS. Extensive flat epithelial atypia. See Surgical Pathology Cancer Case Summary and Comment. Recommendation Surgical consult of the right breast. WANDER
[2018-07-20 15:49] VITALS: RESP 18
[2018-07-20] MEDS: KETOROLAC 30 MG/ML 1 ML VIAL IVP SCH ×2 (17:11→23:30)
[2018-07-20] MEDS: LACTATED RINGERS 1,000 ML IV ONE ×2 (17:11→23:31)
[2018-07-20] MEDS: DOCUSATE 100 MG CAP PO SCH (20:40)
[2018-07-20] MEDS ORDERED: DOCUSATE 100 MG CAP PO PRN (22:57)
--- NOTE | 2018-07-20 22:58 | P.CONS ---
History of Present Illness - Reason for Consult Consult date: 07/20/18 Medical management and pain control - Chief Complaint Right Breast lumpectomy - History of Present Illness Patient is a 68-year-old female with known history of hypertension, hyperlipidemia, obstructive sleep apnea on CPAP at home and diet-controlled diabetes type 2. Patient was recently diagnosed with right breast invasive ductal carcinoma on stereotactic core biopsy about a week ago. Patient today had right breast lumpectomy with sentinel node biopsy. Patient was admitted to the hospital for pain control and postoperative management. Currently denied any fever or chills. No nausea vomiting or abdominal pain. No diarrhea or dysuria. No headache or dizziness or lightheadedness. No chest pain or shortness of breath. Review of Systems Constitutional: Patient denies any fever or chills . No generalized weakness or weight loss. Abdomen: Patient denied nausea vomiting and diarrhea and abdominal pain. Cardiovascular: Patient denies any chest pain or short of breath no palpitations. Respiratory: patient denied any cough is from production. No shortness of breath Neurologic: Patient denied any numbness or tingling headache. Musculoskeletal: Patient denies any complaints of joint swelling or deformity. Skin: Negative Psychiatric: Negative Endocrine: No heat or cold intolerance. No recent weight gain. Genitourinary: No dysuria or hematuria. All other 14 point ROS negative except the above Past Medical History Past Medical History: Hyperlipidemia, Hypertension, Sleep Apnea/CPAP/BIPAP Additional Past Medical History / Comment(s): arthritis, diet control diabetic, bulging disc in back History of Any Multi-Drug Resistant Organisms: None Reported Past Surgical History: Cholecystectomy, Orthopedic Surgery Additional Past Surgical History / Comment(s): BOWEL SURGERY TO REMOVE SCAR TISSUE FROM PREVIOUS OVARIAN CYST. Left hip replacement 2017 Past Anesthesia/Blood Transfusion Reactions: Blood Transfusion Reaction Additional Past Anesthesia/Blood Transfusion Reaction / Comm: HIVES FROM BLOOD TRANSFUSION YEARS AGO. Smoking Status: Former smoker - Past Family History Sister(s) Family Medical History: Cancer Medications and Allergies Home Medications Medication Instructions Recorded Confirmed Type DULoxetine HCL [Cymbalta] 30 mg PO DAILY 04/15/14 07/20/18 History Metoprolol Succinate [Toprol XL] 25 mg PO HS 04/15/14 07/20/18 History Multivitamin/Iron/Folic Acid 1 tab PO DAILY 04/15/14 07/20/18 History [Centrum Complete Multivit Tab] Pravastatin Sodium [Pravachol] 40 mg PO HS 04/15/14 07/20/18 History amLODIPine BESYLATE [Norvasc] 5 mg PO DAILY 04/15/14 07/20/18 History clonazePAM [KlonoPIN] 0.5 mg PO HS 04/15/14 07/20/18 History Aspirin [Adult Low Dose Aspirin EC] 81 mg PO DAILY 05/22/17 07/20/18 History Cinnamon Bark [Cinnamon] 2,000 mg PO DAILY 05/22/17 07/20/18 History Cranberry Fruit Extract [Cranberry] 500 mg PO DAILY 05/22/17 07/20/18 History Naproxen Sodium [Aleve] 220 mg PO BID 05/22/17 07/20/18 History Calcium Carbonate [Calcium] 600 mg PO DAILY 07/17/18 07/20/18 History Allergies Allergy/AdvReac Type Severity Reaction Status Date / Time latex Allergy Itching Verified 07/20/18 14:03 Physical Exam Vitals: Vital Signs Temp Pulse Pulse Pulse Resp BP BP 07/20/18 12:45 73 16 153/70 07/20/18 12:30 97.9 F 73 16 149/68 07/20/18 12:00 72 18 153/67 07/20/18 11:41 76 16 153/68 07/20/18 11:26 75 16 159/89 07/20/18 11:11 97.4 F L 81 18 170/74 07/20/18 08:40 98.1 F 80 16 138/79 07/20/18 08:11 98.0 F 57 L 16 154/72 07/20/18 07:17 97.8 F 57 L 18 167/72 Pulse Ox 07/20/18 12:45 97 07/20/18 12:30 97 07/20/18 12:00 95 07/20/18 11:41 95 07/20/18 11:26 100 07/20/18 11:11 98 07/20/18 08:40 07/20/18 08:11 07/20/18 07:17 96 Intake and Output 07/19/18 07/20/18 07/20/18 22:59 06:59 14:59 Intake Total 1550 Output Total 15 Balance 1535 Intake: IV 1550 Output: Estimated Blood Loss 15 PHYSICAL EXAMINATION: Patient is lying in the bed comfortably, no acute distress, awake alert and oriented.. HEENT: Normocephalic. Neck is supple. Pupils reactive. Nostrils clear. Oral cavity is moist. Ears reveal no drainage. Neck reveals no JVD, carotid bruits, or thyromegaly. CHEST EXAMINATION: Trachea is central. Symmetrical expansion. Right breast drain tube in place. Lung liu clear to auscultation and percussion. CARDIAC: Normal S1, S2 with no gallops. No murmurs ABDOMEN: Soft. Bowel sounds normal. No organomegaly. No abdominal bruits. Extremities: reveal no edema. No clubbing or cyanosis Neurologically awake, alert, oriented x3 with well-coordinated movements. No focal deficits noted Skin: No rash or skin lesions. Psychiatric: Coperative. Nonsuicidal Musculoskeletal: No joint swelling or deformity. Normal range of motion. Results Labs: Abnormal Lab Results - Last 24 Hours (Table) 07/20/18 Range/Units 07:38 POC Glucose (mg/dL) 125 H (75-99) mg/dL Assessment and Plan Assessment: Status post right breast lumpectomy and sentinel lymph node biopsy. right breast invasive ductal carcinoma on stereotactic core biopsy recently followed by mammogram. Hypertension Hyperlipidemia Obstructive sleep apnea on CPAP at home Previous history of smoking Family history of breast cancer Plan: Patient be continued on pain management. Bowel regimen. Incentive spirometry and encourage ambulation. Continue the home blood pressure medications and insulin scale. Continue with the CPAP machine in the night as needed. DVT prophylaxis. We'll follow closely and further recommendations based on the clinical course. We will follow with you. Thank you for your consult Time with Patient: Greater than 30
[2018-07-21] MEDS: KETOROLAC 30 MG/ML 1 ML VIAL IVP SCH (06:18)
[2018-07-21 08:18] VITALS: BP 122/64; PULSE 63; TEMP 97.9
[2018-07-21] MEDS: DOCUSATE 100 MG CAP PO SCH (08:20)
[2018-07-21] MEDS ORDERED: DULoxetine HCL 30 MG CAPSULE.DR PO SCH (09:00)
[2018-07-21] MEDS ORDERED: amLODIPine 5 MG TAB PO SCH (09:00)
[2018-07-21] MEDS ORDERED: ENOXAPARIN 40 MG/0.4 ML SYRINGE SQ SCH (09:00)
[2018-07-21] MEDS ORDERED: ASPIRIN 81 MG PO SCH (09:00)
--- NOTE | 2018-07-21 09:55 | P.DS ---
Providers Date of admission: 07/20/2018 Expected date of discharge: 07/21/18 Attending physician: Dayron Rangel Consults: 07/20/18 11:38 Consult Physician Routine Consulting Provider: Maxx Camacho Consult Reason/Comments: Medical management Do you want consulting provider notified?: Yes Primary care physician: Enoc Santizo [facility] Course: This is a 68-year-old female who underwent lumpectomy with sentinel node biopsy and exited no dissection. Patient did well postoperative. Please see chart for details. Procedures: Wire guided lumpectomy with sentinel node biopsy and limited axillary node dissection Patient Condition at Discharge: Good Plan - Discharge Summary Discharge Rx Participant: Yes New Discharge Prescriptions: New Docusate [Colace] 100 mg PO BID #20 capsule HYDROcodone/APAP 7.5-325MG [Apison 7.5-325] 1 tab PO Q4H PRN 3 Days #18 tab PRN Reason: Pain No Action DULoxetine HCL [Cymbalta] 30 mg PO DAILY amLODIPine BESYLATE [Norvasc] 5 mg PO DAILY Pravastatin Sodium [Pravachol] 40 mg PO HS Metoprolol Succinate [Toprol XL] 25 mg PO HS clonazePAM [KlonoPIN] 0.5 mg PO HS Multivitamin/Iron/Folic Acid [Centrum Complete Multivit Tab] 1 tab PO DAILY Aspirin [Adult Low Dose Aspirin EC] 81 mg PO DAILY Naproxen Sodium [Aleve] 220 mg PO BID Cinnamon Bark [Cinnamon] 2,000 mg PO DAILY Cranberry Fruit Extract [Cranberry] 500 mg PO DAILY Calcium Carbonate [Calcium] 600 mg PO DAILY Discharge Medication List DULoxetine HCL [Cymbalta] 30 mg PO DAILY 04/15/14 [History] Metoprolol Succinate [Toprol XL] 25 mg PO HS 04/15/14 [History] Multivitamin/Iron/Folic Acid [Centrum Complete Multivit Tab] 1 tab PO DAILY [History] Pravastatin Sodium [Pravachol] 40 mg PO HS 04/15/14 [History] amLODIPine BESYLATE [Norvasc] 5 mg PO DAILY 04/15/14 [History] clonazePAM [KlonoPIN] 0.5 mg PO HS 04/15/14 [History] Aspirin [Adult Low Dose Aspirin EC] 81 mg PO DAILY 05/22/17 [History] Cinnamon Bark [Cinnamon] 2,000 mg PO DAILY 05/22/17 [History] Cranberry Fruit Extract [Cranberry] 500 mg PO DAILY 05/22/17 [History] Naproxen Sodium [Aleve] 220 mg PO BID 05/22/17 [History] Calcium Carbonate [Calcium] 600 mg PO DAILY 07/17/18 [History] Docusate [Colace] 100 mg PO BID #20 capsule 07/21/18 [Rx] HYDROcodone/APAP 7.5-325MG [Apison 7.5-325] 1 tab PO Q4H PRN 3 Days #18 tab 07/21 [Rx] Follow up Appointment(s)/Referral(s): Dayron Rangel MD [STAFF PHYSICIAN] - 07/26/18 2:45 pm Patient Instructions/Handouts: Ketorolac (By injection), Breast Lumpectomy (DC)
[2018-07-21] MEDS ORDERED: METOPROLOL SUCCINATE (ER) 25 MG TAB.ER.24H PO SCH (21:00)
[2018-07-21] MEDS ORDERED: PRAVASTATIN SODIUM 40 MG TAB PO SCH (21:00)
--- NOTE | 2018-08-31 09:29 | P.OP ---
Date of Procedure: 07/20/18 Preoperative Diagnosis: Right breast cancer Postoperative Diagnosis: Right breast cancer Procedure(s) Performed: Right breast lumpectomy with sentinel node biopsy and axillary dissection Anesthesia: SANDY Surgeon: Dayron Rangel Estimated Blood Loss (ml): 20 Pathology: other (Right breast lumpectomy, sentinel lymph node, axillary lymph node) Condition: stable Disposition: PACU Description of Procedure: The patient's placed on the operating table in the supine position. She received general anesthesia. Her right breast was prepped and draped in usual sterile fashion. The patient had previously had a wire placed in the right breast. The right breast was injected with methylene blue in 4 quadrants and this was massaged for 4 minutes. A skin incision was made at the wire site. Using electrocautery and Harmonic scissors the lumpectomy was performed. There is no bleeding seen. The specimen sent to pathology. Next a incision was made in the axilla. Using the electrocautery the clavipectoral fascia was divided. And then the axilla was entered. The sentinel node was found. It contained some methylene blue and was also localized with the neoprobe. It was dissected using the Harmonic scissors. It was sent to pathology. There were also some enlarged lymph nodes palpated. A limited axillary dissection was performed. The specimen sent to pathology. The breast incision was closed with 3-0 Monocryl suture. A VADIM drain was placed in the axilla and brought out through separate stab incision and then the axillary incision was closed with 3-0 Vicryl. Dermabond was applied. Patient top she will was sent to recovery in stable condition.
== END 2018-07-21 10:56 | disposition home or self-care (01) ==
LOC: OR 06:40 → 6PED 11:11 → OR 07-21 10:56
PROVIDERS: ATTEND Surgery
DX: M19.90 Unspecified osteoarthritis, unspecified site (principal); I10 Essential (primary) hypertension; E78.5 Hyperlipidemia, unspecified; G47.33 Obstructive sleep apnea (adult) (pediatric); Z99.89 Dependence on other enabling machines and devices; Z87.891 Personal history of nicotine dependence; E11.9 Type 2 diabetes mellitus without complications; C50.911 Malignant neoplasm of unspecified site of right female breast; F39 Unspecified mood [affective] disorder; Z96.642 Presence of left artificial hip joint; Z79.82 Long term (current) use of aspirin; Z79.1 Long term (current) use of non-steroidal anti-inflammatories (NSAID); Z79.899 Other long term (current) drug therapy; Z91.040 Latex allergy status
CPT/HCPCS: 88342; 88307; 88341; 76098; 19281; 38792; 19301; 38525; A9520; J2250; J1644; J1100; J2405; J2001; J1650; Q9968; J3010; J1885 ×2; J0690; J2704

== ENCOUNTER 2018-08-07 08:26 | Day surgery (SDC) | payer MEDICARE, OTHER ==
[2018-08-01 13:29] VITALS: BMI 25.8
[~2018-08-07 08:26] MED LIST changes: -DEXAMETHASONE SOD PHOSPHATE 10 MG/ML 1 ML VIAL IV ONE; -LACTATED RINGERS 1,000 ML IV SCH; -MIDAZOLAM 2 MG/2 ML VIAL IV PRN; -ONDANSETRON 4 MG/2 ML VIAL IVP ONE
[2018-08-07 09:10] LABS: Glucose,Whole Blood 129 mg/dL (75-99)
[2018-08-07] MEDS ORDERED: LACTATED RINGERS 1,000 ML IV ONE ×3 (09:17→13:04)
[2018-08-07] MEDS ORDERED: LIDOCAINE 1% 20 ML VIAL (10MG/ML) FOR IV START INTRADERMA ONE (09:18)
[2018-08-07] MEDS ORDERED: DEXAMETHASONE SOD PHOS (MDV) 100 MG/10 ML VIAL IVP ONE (09:18)
[2018-08-07] MEDS: ONDANSETRON 4 MG/2 ML VIAL IVP ONE ×2 (09:18→13:28)
[2018-08-07] MEDS ORDERED: MIDAZOLAM 2 MG/2 ML VIAL IVP ONE (09:22)
--- NOTE | 2018-08-07 10:03 | P.GSHP ---
History of Present Illness H&P Date: 08/07/18 Chief Complaint: History of right breast cancer This is a 68-year-old female who presents today for right breast simple mesentery. She underwent recent right breast lumpectomy and sentinel biopsy. She is recently diagnosed with right breast cancer. Patient will undergo right breast simple mastectomy with immediate reconstruction by Dr. Concepcion. Past Medical History Past Medical History: Diabetes Mellitus, Hyperlipidemia, Hypertension, Sleep Apnea/CPAP/BIPAP Additional Past Medical History / Comment(s): Arthritis, diet control diabetic, bulging disc in back, right breast cancer. History of Any Multi-Drug Resistant Organisms: None Reported Past Surgical History: Breast Surgery, Cholecystectomy, Orthopedic Surgery Additional Past Surgical History / Comment(s): BOWEL SURGERY TO REMOVE SCAR TISSUE FROM PREVIOUS OVARIAN CYST. Left hip replacement 2017, right breast lumpectomy. Past Anesthesia/Blood Transfusion Reactions: Blood Transfusion Reaction Additional Past Anesthesia/Blood Transfusion Reaction / Comment(s): HIVES FROM BLOOD TRANSFUSION YEARS AGO. Additional Psychological History / Comment(s): Mood disorder. Smoking Status: Former smoker Past Alcohol Use History: Rare Additional Past Alcohol Use History / Comment(s): Quit smoking 30 yrs ago, smoked for 10 yrs, <1 PPD. Past Drug Use History: None Reported - Past Family History Sister(s) Family Medical History: Cancer Medications and Allergies Home Medications Medication Instructions Recorded Confirmed Type DULoxetine HCL [Cymbalta] 30 mg PO QAM 04/15/14 08/01/18 History Metoprolol Succinate [Toprol XL] 25 mg PO HS 04/15/14 08/01/18 History Multivitamin/Iron/Folic Acid 1 tab PO DAILY 04/15/14 08/01/18 History [Centrum Complete Multivit Tab] Pravastatin Sodium [Pravachol] 40 mg PO HS 04/15/14 08/01/18 History amLODIPine BESYLATE [Norvasc] 5 mg PO QAM 04/15/14 08/01/18 History clonazePAM [KlonoPIN] 0.5 mg PO HS 04/15/14 08/01/18 History Aspirin [Adult Low Dose Aspirin EC] 81 mg PO DAILY 05/22/17 08/01/18 History Cinnamon Bark [Cinnamon] 2,000 mg PO DAILY 05/22/17 08/01/18 History Cranberry Fruit Extract [Cranberry] 500 mg PO DAILY 05/22/17 08/01/18 History Naproxen Sodium [Aleve] 220 mg PO BID 05/22/17 08/01/18 History Calcium Carbonate [Calcium] 600 mg PO DAILY 07/17/18 08/01/18 History HYDROcodone/APAP 7.5-325MG [Phenix 1 tab PO Q4H PRN 3 Days #18 tab 07/21/1808/01 Rx 7.5-325] Docusate [Colace] 100 mg PO BID PRN 08/01/18 08/01/18 History Allergies Allergy/AdvReac Type Severity Reaction Status Date / Time latex Allergy Itching Verified 08/01/18 13:13 Surgical - Exam Vital Signs Temp Pulse Resp BP Pulse Ox 98.7 F 55 L 18 151/58 97 08/07/18 08:53 08/07/18 08:53 08/07/18 08:53 08/07/18 08:53 08/07/18 08:53 - General well developed, no distress - Eyes PERRL - ENT normal pinna - Neck no masses - Respiratory normal expansion - Cardiovascular Rhythm: regular - Abdomen Abdomen: soft, non tender Right breast with recent lumpectomy healing scar. There are no masses palpated. Results - Labs Abnormal Lab Results - Last 24 Hours (Table) 08/07/18 Range/Units 09:08 POC Glucose (mg/dL) 129 H (75-99) mg/dL Assessment and Plan Assessment: Right breast cancer. We'll perform right simple mastectomy. After [place] we' ll perform immediate tissue director of corporate sales reconstruction.
[2018-08-07] MEDS ORDERED: PROPOFOL 10 MG/ML 20 ML VIAL IV ONE (10:09)
[2018-08-07] MEDS ORDERED: fentaNYL (PF) 50 MCG/ML 2 ML AMP ONE (10:09)
[2018-08-07] MEDS ORDERED: ROPIVACAINE 5 MG/ML 30 ML VIAL ONE (10:09)
[2018-08-07] MEDS ORDERED: SUCCINYLCHOLINE CHLORIDE 100 MG/5 ML SYR IV ONE (10:09)
[2018-08-07] MEDS ORDERED: GLYCOPYRROLATE 0.2 MG/ML 2 ML VIAL ONE (10:09)
[2018-08-07] MEDS ORDERED: MIDAZOLAM 2 MG/2 ML VIAL ONE (10:09)
[2018-08-07] MEDS ORDERED: DEXAMETHASONE SOD PHOS (MDV) 100 MG/10 ML VIAL ONE (10:09)
[2018-08-07] MEDS ORDERED: LIDOCAINE 1% INJ 10MG/ML (20 ML MDV) ONE (10:09)
[2018-08-07] MEDS ORDERED: ceFAZolin 1,000 MG VIAL IVPB ONE (10:30)
--- NOTE | 2018-08-07 11:37 | P.OP ---
Date of Procedure: 08/07/18 Preoperative Diagnosis: Right breast cancer Postoperative Diagnosis: Right breast cancer Procedure(s) Performed: Right simple mastectomy Right breast reconstruction with tissue cell efficiency supervisor Anesthesia: SANDY Surgeon: Dayron Rangel Estimated Blood Loss (ml): 20 Pathology: other (Right breast) Condition: stable Disposition: PACU Description of Procedure: The patient's placed on the operating table in the supine position. She received IV sedation. The patient received general anesthesia. Her right breast was prepped and draped in usual sterile fashion. The breast been previously marked by Dr. Concepcion. A skin incision was made around the areolar complex. And then using left cautery the mastectomy flaps are created. The flaps are created to the level of the clavicle superiorly the sternum medially inframammary crease inferiorly in the lateral axilla laterally. The breast was then removed off the chest wall using left cautery. Several small perforating veins were ligated. The specimen was then sent to pathology. The specimen was marked with a me suture placed on the medial aspect of the breast. Patient's previous lumpectomy cavity was located at the 4 o'clock position the breast. It was next to the skin. This time the wound is inspected for bleeding.. There is no bleeding seen. Please see Dr. Concepcion's dictation for the remainder of the procedure.
[2018-08-07] MEDS ORDERED: traMADol 50 MG TAB PO PRN (13:04)
[2018-08-07] MEDS ORDERED: NALOXONE 0.4 MG/ML 1 ML VIAL IV PRN (13:04)
[2018-08-07] MEDS ORDERED: HYDROmorphone 1 MG/ML 1 ML SYRINGE IVP PRN (13:04)
[2018-08-07] MEDS ORDERED: HYDROcodone/APAP 5-325MG 1 EACH TAB PO PRN (13:04)
[2018-08-07] MEDS ORDERED: ONDANSETRON 4 MG/2 ML VIAL IVP PRN (13:04)
--- NOTE | 2018-08-07 13:04 | P.ONQ ---
Anesthesiology Proc Note - PNB - Peripheral Nerve Block Performed Other (see comment) Single Time Out Performed: Yes (pec1 and pec2) Procedure Start Time: Procedure Stop Time: Indication: Acute Post-Operative Pain, Requested by physician Sedation Type: Sedate with meaningful contact maintained Preparation: Sterile Prep Position: Supine Needle Size: 50mm (2") Needle Gauge: 21 Technique: Ultrasound Injectate: 0.5% Ropivacaine (see comment for volume) (ropi .5% 15cc each) Blood Aspirated: No Pain Paresthesia on Injection Noted: No Resistance on Injection: Normal Events: Uneventful and Well Tolerated
[2018-08-07] MEDS: HYDROmorphone 0.5 MG/0.5 ML SYRINGE IVP PRN ×2 (13:25→13:28)
[2018-08-07] MEDS ORDERED: diphenhydrAMINE 50 MG/ML 1 ML VIAL IVP ONE (13:32)
[2018-08-07] MEDS: LACTATED RINGERS 1,000 ML IV SCH ×2 (14:05→15:11)
[2018-08-07] MEDS ORDERED: DOCUSATE 100 MG CAP PO PRN (14:14)
--- NOTE | 2018-08-07 14:21 | P.CONS ---
History of Present Illness - Reason for Consult Recommendations regarding antihypertensive medications - History of Present Illness 68-year-old pleasant female was admitted for elective right mastectomy for stage II breast cancer is a curative therapy. Patient is still coming out of anesthesia still sleepy because of which she denied any complaints at this time. Denied any fever chills nausea vomiting dysuria Review of Systems REVIEW OF SYSTEMS: CONSTITUTIONAL: No fever, no malaise, no fatigue. HEENT: No recent visual problems or hearing problems. Denied any sore throat. CARDIOVASCULAR: No chest pain, orthopnea, PND, no palpitations, no syncope. PULMONARY: No shortness of breath, no cough, no hemoptysis. GASTROINTESTINAL: No diarrhea, no nausea, no vomiting, no abdominal pain. Normoactive bowel sounds. NEUROLOGICAL: No headaches, no weakness, no numbness. HEMATOLOGICAL: Denies any bleeding or petechiae. GENITOURINARY: Denies any burning micturition, frequency, or urgency. MUSCULOSKELETAL/RHEUMATOLOGICAL: Denies any joint pain, swelling, or any muscle pain. ENDOCRINE: Denies any polyuria or polydipsia. The rest of the 14-point review of systems is negative. Past Medical History Past Medical History: Diabetes Mellitus, Hyperlipidemia, Hypertension, Sleep Apnea/CPAP/BIPAP Additional Past Medical History / Comment(s): Arthritis, diet control diabetic, bulging disc in back, right breast cancer. History of Any Multi-Drug Resistant Organisms: None Reported Past Surgical History: Breast Surgery, Cholecystectomy, Orthopedic Surgery Additional Past Surgical History / Comment(s): BOWEL SURGERY TO REMOVE SCAR TISSUE FROM PREVIOUS OVARIAN CYST. Left hip replacement 2017, right breast lumpectomy. Past Anesthesia/Blood Transfusion Reactions: Blood Transfusion Reaction Additional Past Anesthesia/Blood Transfusion Reaction / Comm: HIVES FROM BLOOD TRANSFUSION YEARS AGO. Additional Psychological History / Comment(s): Mood disorder. Smoking Status: Former smoker Past Alcohol Use History: Rare Additional Past Alcohol Use History / Comment(s): Quit smoking 30 yrs ago, smoked for 10 yrs, <1 PPD. Past Drug Use History: None Reported - Past Family History Sister(s) Family Medical History: Cancer Medications and Allergies Home Medications Medication Instructions Recorded Confirmed Type DULoxetine HCL [Cymbalta] 30 mg PO QAM 04/15/14 08/01/18 History Metoprolol Succinate [Toprol XL] 25 mg PO HS 04/15/14 08/01/18 History Multivitamin/Iron/Folic Acid 1 tab PO DAILY 04/15/14 08/01/18 History [Centrum Complete Multivit Tab] Pravastatin Sodium [Pravachol] 40 mg PO HS 04/15/14 08/01/18 History amLODIPine BESYLATE [Norvasc] 5 mg PO QAM 04/15/14 08/01/18 History clonazePAM [KlonoPIN] 0.5 mg PO HS 04/15/14 08/01/18 History Aspirin [Adult Low Dose Aspirin EC] 81 mg PO DAILY 05/22/17 08/01/18 History Cinnamon Bark [Cinnamon] 2,000 mg PO DAILY 05/22/17 08/01/18 History Cranberry Fruit Extract [Cranberry] 500 mg PO DAILY 05/22/17 08/01/18 History Naproxen Sodium [Aleve] 220 mg PO BID 05/22/17 08/01/18 History Calcium Carbonate [Calcium] 600 mg PO DAILY 07/17/18 08/01/18 History HYDROcodone/APAP 7.5-325MG [[place] 1 tab PO Q4H PRN 3 Days #18 tab 07/21/1808/01 Rx 7.5-325] Docusate [Colace] 100 mg PO BID PRN 08/01/18 08/01/18 History Allergies Allergy/AdvReac Type Severity Reaction Status Date / Time latex Allergy Itching Verified 08/01/18 13:13 Physical Exam Vitals: Vital Signs Temp Pulse Resp BP Pulse Ox 08/07/18 13:30 83 16 153/69 95 08/07/18 13:15 76 16 161/72 100 08/07/18 13:00 76 16 154/69 100 08/07/18 12:42 97.0 F L 77 16 151/68 100 08/07/18 09:36 59 L 18 147/67 98 08/07/18 08:53 98.7 F 55 L 18 151/58 97 Intake and Output 08/06/18 08/07/18 08/07/18 22:59 06:59 14:59 Intake Total 1900 Output Total 300 Balance 1600 Intake: IV 1900 Output: Urine 225 Estimated Blood Loss 75 PHYSICAL EXAMINATION: GENERAL: Still significantly drowsy from anesthesia, not in any acute distress. Well developed, well nourished. HEENT: Pupils are round and equally reacting to light. EOMI. No scleral icterus. No conjunctival pallor. Normocephalic, atraumatic. No pharyngeal erythema. No thyromegaly. CARDIOVASCULAR: S1 and S2 present. No murmurs, rubs, or gallops. PULMONARY: Chest is clear to auscultation, no wheezing or crackles. ABDOMEN: Soft, nontender, nondistended, normoactive bowel sounds. No palpable organomegaly. MUSCULOSKELETAL: No joint swelling or deformity. EXTREMITIES: No cyanosis, clubbing, or pedal edema. NEUROLOGICAL: Gross neurological examination did not reveal any focal deficits. SKIN: No rashes. Results Labs: Abnormal Lab Results - Last 24 Hours (Table) 08/07/18 Range/Units 09:08 POC Glucose (mg/dL) 129 H (75-99) mg/dL Assessment and Plan Plan: -Right breast cancer status post mastectomy: Pain management due to prophylaxis per primary service -Hypertension hold off amlodipine to prevent perioperative hypotension, monitor blood pressure depending on her blood pressure will decide on restarting back on this medication tomorrow although metoprolol will be started back -Hyperlipidemia -Depression -Diet controlled diabetes mellitus: We will monitor blood sugars -Sleep apnea and uses CPAP machine which will be continued For above-mentioned chronic medical problems appropriate home medications for presumed medication reconciliation was done will continue to follow the patient
[2018-08-07] MEDS: KETOROLAC 30 MG/ML 1 ML VIAL IVP SCH ×2 (14:33→20:45)
[2018-08-07] MEDS ORDERED: clonazePAM 0.5 MG TAB PO SCH (21:00)
[2018-08-07] MEDS ORDERED: METOPROLOL SUCCINATE (ER) 25 MG TAB.ER.24H PO SCH (21:00)
[2018-08-07] MEDS ORDERED: PRAVASTATIN SODIUM 40 MG TAB PO SCH (21:00)
--- NOTE | 2018-08-07 23:14 | OP ---
OPERATIVE REPORT DATE OF PROCEDURE: 08/07/2018 PREOPERATIVE DIAGNOSES: 1. Acquired loss, right breast. 2. Breast cancer, right breast. POSTOPERATIVE DIAGNOSES: 1. Acquired loss, right breast. 2. Breast cancer, right breast. OPERATIVE PROCEDURE: 1. Immediate reconstruction, right breast, following mastectomy with insertion of tissue certified paralegal and subsequent outpatient expansion. 2. Implantation of reconstructive graft for right breast reconstruction, 150 square cm. OPERATIVE INDICATIONS: The patient is a 68-year-old female who has ductal carcinoma in situ of the right breast. Attempted lumpectomy could not clear margins. After consultation with her surgeon, she has elected to proceed with right simple mastectomy. She was referred to my care for breast reconstruction and has elected to proceed with a tissue certified paralegal style technique. She understands the staged nature of breast reconstructive surgery as well as potential risks and complications related to the surgery today. OPERATIVE PROCEDURE SUMMARY: The patient was seen in the presurgical area, markings made, procedure reviewed, all questions answered. She was transported to the operating room, where she was placed in supine position. Following induction of general endotracheal anesthesia, the patient was prepped and draped in the usual fashion. Dr. Rangel and his surgical team then proceeded with the right simple mastectomy. Once this procedure was complete, I entered the operative suite. The patient was under general endotracheal anesthesia in supine position. Sponge and needle counts of the prior procedure were correct. The right mastectomy wound was open with no active bleeding. The wound site was irrigated. The right pectoralis muscle was identified where it joined the chest wall laterally. Loose areolar connective tissue was divided with cautery here, allowing entry into the potential plane between the pectoralis major and minor muscles, bluntly developed. Medial attachment fibers of the pectoralis major muscle to ribs were released and all inferior attachments were released. The pectoralis major muscle was not sufficient for coverage of the certified paralegal. However, additional muscle tissue was recruited through this approach. Inferomedially, rectus abdominis muscle and fascia, inferolaterally, external abdominal oblique muscle and fascia, and laterally serratus anterior muscle and fascia were all elevated with cauterization. Hemostasis was maintained with cautery. Once a sufficient-size submuscular reconstructive pocket was created, dissection stopped and irrigation was performed. Hemostasis was excellent. The cavity was measured, gloves changed and certified paralegal now opened on the field. The certified paralegal was a [place] [employer] high- profile model, 500 mL volume rating, reference number [id number], serial number [id number]. The device was only handled by the surgeon. The device was irrigated with saline, all air extracted; 100 mL 0.9 normal saline instilled. It was inserted into the reconstructive cavity under direct vision to ensure orientation. The muscle flap tissue was attenuated. There were several tears in the muscle flap tissue. There were areas that were also very weak. SurgiMend reconstructive graft was opened on the field measuring 10 x 15 cm, thin and fenestrated. The graft was revitalized in room- temperature saline. The graft was required to buttress the weakened muscles while spanning an area where the muscle could not be completely approximated without significant tension. Once ready, the SurgiMend was placed deep to the muscle flap tissue over the certified paralegal in modified or inferior sling formation, and then the SurgiMend was inset to the muscle flap tissue as well as the muscle flap tissue approximated where possible using interrupted and short running 3-0 Vicryl sutures. Complete coverage of the certified paralegal was obtained and the cavity was irrigated a final time. A 19 round Ten channel drain was inserted into the reconstructive cavity and brought out through a separate stab incision in the right anterior lower chest wall and sutured in place with 2-0 Prolene. The mastectomy skin incision was now closed. A circumareolar incision with lateral extension was the method of the mastectomy. The lateral extension was approximated in a deep dermal layer using inverted interrupted 4- 0 Monocryl until re-forming the [place]. The circular incision was now closed in a pursestring fashion using deep dermal 2-0 Prolene followed by use of interrupted ting to approximate the epidermis in all locations. The drain was connected to closed-bulb suction and patent. The surgical field was cleansed with saline and dried. Postoperative bandages were placed. Estimated blood loss was 75 mL. There were no complications. The patient was extubated in the operating room and transferred to the recovery room in good condition. MMODL / IJN: [id number] /
[2018-08-08] MEDS: KETOROLAC 30 MG/ML 1 ML VIAL IVP SCH ×2 (02:18→08:04)
[2018-08-08 02:28] VITALS: TEMP 97.8
[2018-08-08 08:09] VITALS: BP 135/67; PULSE 54; RESP 16
[2018-08-08] MEDS ORDERED: DULoxetine HCL 30 MG CAPSULE.DR PO SCH (09:00)
[2018-08-08] MEDS ORDERED: ASPIRIN 81 MG PO SCH (09:00)
[2018-08-08] MEDS ORDERED: ENOXAPARIN 40 MG/0.4 ML SYRINGE SQ SCH (09:00)
--- NOTE | 2018-08-08 11:13 | P.DS ---
Providers Expected date of discharge: 08/08/18 Attending physician: Dayron Rangel Consults: 08/07/18 13:04 Consult Physician Routine Consulting Provider: Maxx Camacho Consult Reason/Comments: medical manage Do you want consulting provider notified?: Yes Primary care physician: Enoc Santizo Hospital Course: 68-year-old female presented to undergo right breast simple mastectomy for right breast cancer . Patient underwent a recent right breast lumpectomy with immediate reconstruction by Dr. Concepcion plastic surgeon postop events. On the day of discharge the right breast dressing dry [address] serous drainage patient was felt to be appropriate to be discharged home Impression discharge diagnosis Right breast reconstruction with tissue expanders done on August 07 Right simple mastectomy for right breast cancer August 07 recently diagnosed right breast cancer Right breast stage II breast cancer Hypertension Hyperlipidemia Sleep apnea with the use of CPAP therapy The above impression and plan of care have been discussed and directed by signing physician. Mary Anne Pastrana nurse practitioner acting as scribe for signing physician. Plan - Discharge Summary Discharge Rx Participant: No New Discharge Prescriptions: Continue DULoxetine HCL [Cymbalta] 30 mg PO QAM amLODIPine BESYLATE [Norvasc] 5 mg PO QAM Pravastatin Sodium [Pravachol] 40 mg PO HS Metoprolol Succinate [Toprol XL] 25 mg PO HS clonazePAM [KlonoPIN] 0.5 mg PO HS Multivitamin/Iron/Folic Acid [Centrum Complete Multivit Tab] 1 tab PO DAILY Aspirin [Adult Low Dose Aspirin EC] 81 mg PO DAILY Naproxen Sodium [Aleve] 220 mg PO BID Cinnamon Bark [Cinnamon] 2,000 mg PO DAILY Cranberry Fruit Extract [Cranberry] 500 mg PO DAILY Calcium Carbonate [Calcium] 600 mg PO DAILY HYDROcodone/APAP 7.5-325MG [[place] 7.5-325] 1 tab PO Q4H PRN 3 Days #18 tab PRN Reason: Pain Docusate [Colace] 100 mg PO BID PRN PRN Reason: Constipation Discharge Medication List DULoxetine HCL [Cymbalta] 30 mg PO QAM 04/15/14 [History] Metoprolol Succinate [Toprol XL] 25 mg PO HS 04/15/14 [History] Multivitamin/Iron/Folic Acid [Centrum Complete Multivit Tab] 1 tab PO DAILY [History] Pravastatin Sodium [Pravachol] 40 mg PO HS 04/15/14 [History] amLODIPine BESYLATE [Norvasc] 5 mg PO QAM 04/15/14 [History] clonazePAM [KlonoPIN] 0.5 mg PO HS 04/15/14 [History] Aspirin [Adult Low Dose Aspirin EC] 81 mg PO DAILY 05/22/17 [History] Cinnamon Bark [Cinnamon] 2,000 mg PO DAILY 05/22/17 [History] Cranberry Fruit Extract [Cranberry] 500 mg PO DAILY 05/22/17 [History] Naproxen Sodium [Aleve] 220 mg PO BID 05/22/17 [History] Calcium Carbonate [Calcium] 600 mg PO DAILY 07/17/18 [History] HYDROcodone/APAP 7.5-325MG [[place] 7.5-325] 1 tab PO Q4H PRN 3 Days #18 tab 07/21 [Rx] Docusate [Colace] 100 mg PO BID PRN 08/01/18 [History] Follow up Appointment(s)/Referral(s): Rick Rea MD [STAFF PHYSICIAN] - 08/13/18 11:15 am Dayron Rangel MD [STAFF PHYSICIAN] - 08/16/18 2:45 pm Patient Instructions/Handouts: Postoperative Bleeding (GEN), Mastectomy (GEN) Activity/Diet/Wound Care/Special Instructions: continue regular diet as tolerated, Fluids always encouraged sponge baths only until further instructed by physician - no tub baths, showers , hot tubs, or pools. call physician with any comments, questions, or concerns. or with any worsening symptoms, fever of 100.5 or higher and/or chills, not tolerating diet/fluids, any unusual drainage from Abdifatah-santos drain (laura blood, green, white, or yellow drainage, any foul odor, etc) per Dr. Katz, no bras allowed, camisol to be worn take medications as ordered. Discharge Disposition: HOME SELF-CARE
== END 2018-08-08 11:35 | disposition home or self-care (01) ==
LOC: OR 08:26 → 6PED 13:19 → OR 08-08 11:35
PROVIDERS: ATTEND Surgery
DX: D05.11 Intraductal carcinoma in situ of right breast (principal); I10 Essential (primary) hypertension; E11.9 Type 2 diabetes mellitus without complications; M19.90 Unspecified osteoarthritis, unspecified site; E78.5 Hyperlipidemia, unspecified; G47.33 Obstructive sleep apnea (adult) (pediatric); F32.9 Major depressive disorder, single episode, unspecified; Z99.89 Dependence on other enabling machines and devices; Z79.1 Long term (current) use of non-steroidal anti-inflammatories (NSAID); Z79.82 Long term (current) use of aspirin; Z79.899 Other long term (current) drug therapy; Z90.49 Acquired absence of other specified parts of digestive tract; Z96.642 Presence of left artificial hip joint; Z87.891 Personal history of nicotine dependence; Z91.040 Latex allergy status
CPT/HCPCS: 19303; 19357; 15777; 64450; C1763; J2250; J1200; J2405; J0690; J1650; J1885 ×2; J1170 ×2; J1100; 88307

== ENCOUNTER → 2018-08-21 | Day surgery (SDC) | payer MEDICARE, OTHER ==
[2018-08-20 12:44] VITALS: BMI 25.8
[~2018-08-21] MED LIST changes: +DEXAMETHASONE SOD PHOS (MDV) 100 MG/10 ML VIAL IVP ONE; -HEPARIN SODIUM,PORCINE 5,000 UNIT/ML 1 ML VIAL SQ ONE; +HYDROmorphone 1 MG/ML 1 ML SYRINGE IVP ONE; +LACTATED RINGERS 1,000 ML IV ONE; +LIDOCAINE 1% 20 ML VIAL (10MG/ML) FOR IV START INTRADERMA ONE; +LIDOCAINE 1% INJ 10MG/ML (20 ML MDV) ONE; +MIDAZOLAM 2 MG/2 ML VIAL IVP ONE; +MIDAZOLAM 2 MG/2 ML VIAL ONE; +ONDANSETRON 4 MG/2 ML VIAL IVP ONE; +PROPOFOL 10 MG/ML 20 ML VIAL IV ONE; +SUCCINYLCHOLINE CHLORIDE 100 MG/5 ML SYR IV ONE; +ceFAZolin IN SWFI 2 GM/20 ML SYRINGE IVP ONE; +ePHEDrine SULFATE/0.9% NACL/PF 50 MG/5 ML SYRINGE IV ONE; -fentaNYL (PF) 50 MCG/ML 2 ML AMP IV PRN; +fentaNYL (PF) 50 MCG/ML 2 ML AMP ONE
[2018-08-21 10:49] LABS: Glucose,Whole Blood 101 mg/dL (75-99)
[2018-08-21 12:56] VITALS: TEMP 97.6
[2018-08-21 13:21] VITALS: RESP 16
--- NOTE | 2018-08-21 13:34 | OP ---
OPERATIVE REPORT DATE OF SERVICE: 08/21/2018 SURGEON: Rick Rea MD PREOPERATIVE DIAGNOSIS: Cellulitis right reconstructed breast with seroma. POSTOPERATIVE DIAGNOSIS: Cellulitis right reconstructed breast with seroma. OPERATIVE PROCEDURE: Exploration right reconstructed breast with drainage of seroma, insertion of drain and re-closure. OPERATIVE INDICATION: The patient is a 68-year-old female, approximately 2 weeks status post right mastectomy for breast cancer with immediate reconstruction via tissue rn advanced. The patient's postoperative course was initially unremarkable. Her drain outputs had decreased below 30 mL over 24 hours after one week and her drain was removed. The patient was then seen 4 days later with increasing swelling of the right reconstructive breast and slight erythema and questionable fevers and chills. She was started on oral Keflex and aspiration of 80 mL of seroma fluid performed. She was seen 3 days later erythema had increased on the right reconstructive breast. Additional 60 mL of seroma fluid aspirated. She was scheduled for today's surgery. The patient understands the potential risks and complications related to procedure including loss of the reconstruction and possible need for future surgery for removal of the rn advanced should her situation not improve. OPERATIVE PROCEDURE SUMMARY: The patient was seen in presurgical area, markings made, procedure reviewed. All questions answered. She was transported to the operative room where general endotracheal anesthesia was established. She was in supine position on the operating table. She was prepped and draped in usual fashion. The patient's right lateral extension of her prior incision was now marked with skin marker and extended laterally 4 cm. This transverse incision was now made dividing skin in full-thickness fashion followed by cauterization to divide the underlying subcutaneous tissue. The seroma cavity was then entered. The seroma fluid was clear, although serosanguineous. There was no odor. A culture of the deep cavity was obtained for Gram stain, aerobic and anaerobic culture and sensitivity. The fluid was completely drained. There was no exudate or granulation tissue within the fluid and no particulate matter. The patient's rn advanced with not exposed. The SurgiMend graft and muscle flap layers were intact. The area was irrigated using several liters of fluid. A 19 round Ten channel drain was inserted in the surgical field, brought out a separate stab incision right anterior left chest wall and sutured in place with 2-0 Prolene. The drains connected at the full length and guided and oriented in the seroma cavity for drainage. The incision was now closed approximating deep dermis using inverted interrupted 3-0 Vicryl and then closure of the skin with interrupted ting. The drain was connected to close bulb suction and patent. Postoperative bandage was placed and the patient was then awakened from her anesthetic, extubated, and transferred to recovery room in good condition. Stable vital signs. There were no complications. MMODL / IJN: [id number] /
[2018-08-21 14:00] VITALS: BP 124/56; PULSE 67
== END | disposition home or self-care (01) ==
LOC: OR 10:05
PROVIDERS: ATTEND Plastic Surgery
DX: L76.34 Postprocedural seroma of skin and subcutaneous tissue following other procedure (principal); Z85.3 Personal history of malignant neoplasm of breast; I10 Essential (primary) hypertension; E11.9 Type 2 diabetes mellitus without complications; M19.90 Unspecified osteoarthritis, unspecified site; G47.33 Obstructive sleep apnea (adult) (pediatric); F32.9 Major depressive disorder, single episode, unspecified; Z79.82 Long term (current) use of aspirin; Z79.899 Other long term (current) drug therapy; Z91.040 Latex allergy status
CPT/HCPCS: 87070; 87205; 87075; 19020; J2250; J2405; J2001; J3010; J1170; J1100; J0330; J2704; 87077; 87186

== ENCOUNTER 2018-09-21 14:03 | Emergency (ER) | payer MEDICARE, OTHER ==
[2018-09-21 14:18] VITALS: TEMP 98.5
[2018-09-21] MEDS ORDERED: SULFAMETH-TMP DS STARTER PACK 2 TAB BTL PO STA (15:10)
[2018-09-21] MEDS ORDERED: SULFAMETHOX-TMP 800-160MG 1 EACH TAB PO STA (15:10)
--- NOTE | 2018-09-21 15:12 | ED ---
Recheck HPI - General Chief Complaint: Recheck/Abnormal Lab/Rx Stated Complaint: post op infection Time Seen by Provider: 09/21/18 14:30 Source: patient, RN notes reviewed, old records reviewed Mode of arrival: ambulatory Limitations: no limitations - History of Present Illness Initial Comments: This is a 68 female to the ED with complaint of right breast pain, patient does have bilateral mastectomy currently getting right breast bilateral breast expansion, patient is had recurrent abscess and cellulitis in right breast, today for this evaluation of the same. Denies fever, no other complaints MD Complaint: wound re-check (Abscess) -: days(s) (2) Initial Visit For: cellulitis, abscess Returns Today for: wound recheck Symptoms Since Prior Visit: worsening pain, worsening swelling, worsening redness Associated Symptoms: none - Related Data Home Medications Medication Instructions Recorded Confirmed DULoxetine HCL [Cymbalta] 30 mg PO QAM 04/15/14 09/24/18 Metoprolol Succinate [Toprol XL] 25 mg PO HS 04/15/14 09/24/18 Multivitamin/Iron/Folic Acid 1 tab PO DAILY 04/15/14 09/24/18 [Centrum Complete Multivit Tab] Pravastatin Sodium [Pravachol] 40 mg PO HS 04/15/14 09/24/18 amLODIPine BESYLATE [Norvasc] 5 mg PO QAM 04/15/14 09/24/18 clonazePAM [KlonoPIN] 0.5 mg PO HS 04/15/14 09/24/18 Aspirin [Adult Low Dose Aspirin EC] 81 mg PO HS 05/22/17 09/24/18 Cranberry Fruit Extract [Cranberry] 500 mg PO DAILY 05/22/17 09/24/18 Previous Rx's Medication Instructions Recorded Sulfamethox-Tmp 800-160Mg [Bactrim 2 tab PO BID #40 tab 09/21/18 DS 800-160 mg] Allergies Allergy/AdvReac Type Severity Reaction Status Date / Time latex Allergy Itching Verified 09/24/18 12:14 Review of Systems ROS Statement: Those systems with pertinent positive or pertinent negative responses have been documented in the HPI. ROS Other: All systems not noted in ROS Statement are negative. Past Medical History Past Medical History: Cancer, Diabetes Mellitus, Hyperlipidemia, Hypertension, Musculoskeletal Disorder, Osteoarthritis (OA), Sleep Apnea/CPAP/BIPAP Additional Past Medical History / Comment(s): diet control diabetic, bulging disc in back, R breast cancer, Dx 2018 History of Any Multi-Drug Resistant Organisms: None Reported Past Surgical History: Breast Surgery, Cholecystectomy, Orthopedic Surgery Additional Past Surgical History / Comment(s): BOWEL SURGERY TO REMOVE SCAR TISSUE FROM PREVIOUS OVARIAN CYST. Left hip replacement 2017, right breast lumpectomy; R Mastectomy 08/07/18 Past Anesthesia/Blood Transfusion Reactions: Blood Transfusion Reaction Additional Past Anesthesia/Blood Transfusion Reaction / Comment(s): HIVES FROM BLOOD TRANSFUSION YEARS AGO. Past Psychological History: No Psychological Hx Reported Smoking Status: Former smoker Past Alcohol Use History: Occasional Past Drug Use History: None Reported - Past Family History Sister(s) Family Medical History: Cancer General Exam - General Exam Comments Initial Comments: BL mastercomy, R breast abscess 2x2cm, indurated cellulitis Limitations: no limitations General appearance: alert, in no apparent distress Head exam: Present: atraumatic, normocephalic, normal inspection Eye exam: Present: normal appearance, PERRL, EOMI. Absent: scleral icterus, conjunctival injection, periorbital swelling ENT exam: Present: normal exam, mucous membranes moist Neck exam: Present: normal inspection. Absent: tenderness, meningismus, lymphadenopathy Respiratory exam: Present: normal lung sounds bilaterally. Absent: respiratory distress, wheezes, rales, rhonchi, stridor Cardiovascular Exam: Present: regular rate, normal rhythm, normal heart sounds. Absent: systolic murmur, diastolic murmur, rubs, gallop, clicks GI/Abdominal exam: Present: soft, normal bowel sounds. Absent: distended, tenderness, guarding, rebound, rigid Extremities exam: Present: normal inspection, full ROM, normal capillary refill. Absent: tenderness, pedal edema, joint swelling, calf tenderness Back exam: Present: normal inspection Neurological exam: Present: alert, oriented X3, CN II-XII intact Psychiatric exam: Present: normal affect, normal mood Skin exam: Present: warm, dry, intact, normal color. Absent: rash Course Vital Signs 09/21/18 09/21/18 14:16 16:52 Temperature 98.5 F 98.5 F Pulse Rate 68 67 Respiratory 20 18 Rate Blood Pressure 172/71 148/62 O2 Sat by Pulse 99 95 Oximetry Medical Decision Making - Medical Decision Making 68 female the ER for evaluation of right breast possible abscess infection and cellulitis. Patient does have area of erythematous, warm upon her right breast , area was needle and needle aspirated which to return. Material, patient placed on antibiotics and discharged to follow-up with her surgeon Disposition Clinical Impression: Abscess Narrative: Post Op Abscess Disposition: HOME SELF-CARE Condition: Good Instructions: Abscess (ED) Prescriptions: Sulfamethox-Tmp 800-160Mg [Bactrim DS 800-160 mg] 2 tab PO BID #40 tab Is patient prescribed a controlled substance at d/c from ED?: No Referrals: Enoc Santizo MD [Primary Care Provider] - 1-2 days
[2018-09-21 16:53] VITALS: BP 148/62; PULSE 67; RESP 18
== END 2018-09-21 16:53 | disposition home or self-care (01) ==
LOC: EC 14:03
DX: T81.49XA Infection following a procedure, other surgical site, initial encounter (principal); E78.5 Hyperlipidemia, unspecified; I10 Essential (primary) hypertension; E11.9 Type 2 diabetes mellitus without complications; M19.90 Unspecified osteoarthritis, unspecified site; G47.30 Sleep apnea, unspecified; Z87.891 Personal history of nicotine dependence; Z91.040 Latex allergy status; Z79.82 Long term (current) use of aspirin; Z79.899 Other long term (current) drug therapy; Z85.3 Personal history of malignant neoplasm of breast; Z90.13 Acquired absence of bilateral breasts and nipples; Z99.89 Dependence on other enabling machines and devices; Z96.642 Presence of left artificial hip joint
CPT/HCPCS: 10160; 99283

== ENCOUNTER 2018-09-25 07:32 | Day surgery (SDC) | payer MEDICARE, OTHER ==
[~2018-09-25 07:32] MED LIST changes: -DEXAMETHASONE SOD PHOS (MDV) 100 MG/10 ML VIAL IVP ONE; +DEXAMETHASONE SOD PHOSPHATE 10 MG/ML 1 ML VIAL IV ONE; -HYDROmorphone 1 MG/ML 1 ML SYRINGE IVP ONE; -LACTATED RINGERS 1,000 ML IV ONE; +LACTATED RINGERS 1,000 ML IV SCH; -LIDOCAINE 1% 20 ML VIAL (10MG/ML) FOR IV START INTRADERMA ONE; -LIDOCAINE 1% INJ 10MG/ML (20 ML MDV) ONE; -MIDAZOLAM 2 MG/2 ML VIAL IVP ONE; -MIDAZOLAM 2 MG/2 ML VIAL ONE; +MORPHINE SULFATE 2 MG/ML SYRINGE IV PRN; -PROPOFOL 10 MG/ML 20 ML VIAL IV ONE; -Pre Op ABX Message 1 EACH MISC MISCELLANE ONE; -SUCCINYLCHOLINE CHLORIDE 100 MG/5 ML SYR IV ONE; -ePHEDrine SULFATE/0.9% NACL/PF 50 MG/5 ML SYRINGE IV ONE; -fentaNYL (PF) 50 MCG/ML 2 ML AMP ONE
[2018-09-25 08:01] LABS: Glucose,Whole Blood 124 mg/dL (75-99)
[2018-09-25] MEDS ORDERED: LIDOCAINE 1% 20 ML VIAL (10MG/ML) FOR IV START INTRADERMA ONE (08:10)
[2018-09-25] MEDS ORDERED: fentaNYL (PF) 50 MCG/ML 2 ML AMP ONE (09:12)
[2018-09-25] MEDS ORDERED: KETOROLAC 30 MG/ML 1 ML VIAL ONE (09:12)
[2018-09-25] MEDS ORDERED: PROPOFOL 10 MG/ML 20 ML VIAL IV ONE (09:12)
[2018-09-25] MEDS ORDERED: MIDAZOLAM 2 MG/2 ML VIAL ONE (09:12)
[2018-09-25] MEDS ORDERED: LIDOCAINE 1% INJ 10MG/ML (20 ML MDV) ONE (09:12)
[2018-09-25 10:25] VITALS: TEMP 96.9
--- NOTE | 2018-09-25 11:17 | OP ---
OPERATIVE REPORT DATE OF SURGERY: 09/25/2018 SURGEON: Rick Rea MD PREOPERATIVE DIAGNOSIS: Right reconstructed breast cellulitis with open wound. POSTOPERATIVE DIAGNOSIS: Right reconstructed breast cellulitis with open wound. OPERATIVE PROCEDURE: 1. Exploration right reconstructed breast with removal of right breast tissue coating machine feeder. 2. Revision right reconstructed breast. OPERATIVE INDICATIONS: Patient is a 68-year-old female who has undergone a right mastectomy with immediate reconstruction for treatment of breast cancer, her reconstruction was via tissue coating machine feeder technique. Her initial postoperative course was complicated by a seroma after her drain was removed associated with questionable cellulitis. She was taken to surgery, explored. Cultures for the seroma fluid were negative. A new coating machine feeder had been placed at that time with a drain. Her postoperative course after the second surgery was unremarkable until this past weekend when she presented to the emergency room with an area of erythema that persisted along the right lateral aspect of the reconstructed breast. She was seen and treated in the emergency room where physician attempted aspiration of the site through saline. Clearly, her coating machine feeder was ruptured. She was seen in the office by myself yesterday and scheduled for today surgery that should include exploration of reconstructive breast, removal of the tissue coating machine feeder, revision if needed and placement of a drain. She understands there will remain possibilities for reconstruction of breast in the future, but at this time will need to heal. She understands potential risks and complications of the surgery. OPERATIVE PROCEDURE SUMMARY: Patient is seen in the preoperative area, markings made, procedure reviewed. All questions answered. She was transported to the operating room where general endotracheal anesthesia was established. She was positioned supine on the operating table. The patient was prepped and draped in the usual fashion. The prior mastectomy closure site was now used for incision location. Incision made with a 10 blade scalpel dividing skin full-thickness fashion followed by cauterization to divide subcutaneous tissue and then elevating subcutaneous tissue off the muscle flap edges were present and then the muscle flap tissue was divided with cautery, exposing the coating machine feeder. The coating machine feeder was removed intact. The cavity had serous fluid and some granulation tissue but no significant exudates. Aerobic, anaerobic culture was obtained in the deep reconstructive cavity and sent to microbiology along with instructions for Gram stain. Extensive irrigation is performed using pulsed irrigation unit, several L of fluid. The patient's wound located on the right lateral area of the reconstructed breast from the puncture site was now excised in elliptical fashion. This excised tissue was sent to pathology. Next, the patient's breast was revised for closure, excision of the portion of the mastectomy scar and then additional re dissection of the layer muscle and skin subcutaneous tissue to allow for a closure in layered fashion. Also, allowing advancement of the muscle underneath the area where the wound was present. Once this was completed, irrigation is performed again. Hemostasis was excellent. A 19 round Ten channel drain inserted in the surgical field and brought through a stab incision right anterior lateral chest wall and sutured in place with 2-0 Prolene. The drain is connected to close bulb suction and incision is closed approximating the muscle layer using interrupted 4-0 Monocryl followed by approximation of deep dermis using inverted interrupted 4-0 Monocryl and closure of superficial dermis and epidermis with simple running 5-0 Prolene. Surgical liu cleansed with saline, dried, postoperative bandages placed using Kerlix squares and then positioned a size 3 mammary support with additional gauze padding. Drain was patent. The patient is then awakened from anesthetic, extubated, transferred to recovery room in good condition and stable vital signs. ESTIMATED BLOOD LOSS: 25 mL. There were no complications. MMODL / IJN: [id number] /
[2018-09-25 11:48] VITALS: BP 129/68; PULSE 56; RESP 16
== END 2018-09-25 12:13 | disposition home or self-care (01) ==
LOC: OR 07:32
PROVIDERS: ATTEND Plastic Surgery
DX: N64.1 Fat necrosis of breast (principal); T85.49XA Other mechanical complication of breast prosthesis and implant, initial encounter; I10 Essential (primary) hypertension; Z90.11 Acquired absence of right breast and nipple; M19.90 Unspecified osteoarthritis, unspecified site; Z80.3 Family history of malignant neoplasm of breast; Z83.3 Family history of diabetes mellitus; Z82.49 Family history of ischemic heart disease and other diseases of the circulatory system; Z80.41 Family history of malignant neoplasm of ovary; Z87.891 Personal history of nicotine dependence; E78.5 Hyperlipidemia, unspecified; G47.33 Obstructive sleep apnea (adult) (pediatric); Z99.89 Dependence on other enabling machines and devices; D64.9 Anemia, unspecified; K21.9 Gastro-esophageal reflux disease without esophagitis; Z79.82 Long term (current) use of aspirin; Z79.899 Other long term (current) drug therapy; Z91.040 Latex allergy status
CPT/HCPCS: 11971; 19380; 88305; 87070; 87205; 87075; J2250; J1100; J2405; J2001; J3010; J1885; J2704; J0690; 87077; 87186

== ENCOUNTER → 2019-02-06 | Outpatient (CLI) | payer MEDICARE, OTHER ==
--- NOTE | 2019-02-06 15:41 | BD ---
EXAMINATION TYPE: Axial Bone Density DATE OF EXAM: 02/06/2019 COMPARISON: 2012 CLINICAL HISTORY: Breast cancer. Hormone replacement. Postmenopausal female. Height: 68 Weight: 197.0 FRAX RISK QUESTIONS: Alcohol (3 or more units per day): no Family History (Parent hip fracture): no Glucocorticoids (More than 3mos): no (Ex: prednisone, prednisolone, methylprednisolone, dexamethasone, and hydrocortisone). History of Fracture in Adulthood: no Secondary Osteoporosis: 1. Type 1 Diabetes: no 2. Hyperthyroidism: no 3. Menopause before 45: no 4. Malnutrition: no 5. Chronic liver disease: no Rheumatoid Arthritis: no Current Tobacco Use: no RISK FACTORS HISTORY OF: Surgery to Spine/Hip(right/left)/Wrist (right/left): left hip When: jun 2018 Family History of Osteoporosis: no Active: yes Diet low in dairy products/other sources of calcium: no Postmenopausal woman: age 47 Lost more than 2 inches in height since high school: no MEDICATIONS: toprolol, norvasc, type 2 diabetic meds, anastrozole Additional History: pt had breast cancer EXAM MEASUREMENTS: Bone mineral densitometry was performed using the [employer] System. Bone mineral density as measured about the Lumbar spine is: ----- L1-L4(G/cm2): 1.130 T Score Values are as follows: ----- L2: -0.4 ----- L3: -1.2 ----- L4: -0.4 ----- L1-L4: -0.4 Bone mineral density has: decreased -6.1 % since study of: 11.09.2012 Bone mineral density about the R hip (g/cm2): 0.887 T Score values are as follows: -----R Neck: -1.1 -----R Total: -0.7 Bone mineral density has: decreased -7.6 % since study of: 11.09.2012 IMPRESSION: Osteopenia (T Score between -2.5 and -1). There is slightly increased risk of fracture and the patient may be considered for treatment. Re-Screen 2-5 years. NOTE: T-SCORE=SD OF THE YOUNG ADULT MEAN.
== END | disposition home or self-care (01) ==
LOC: RADBDWWP 12:19
PROVIDERS: ATTEND Internal Medicine Hematology & Oncology
DX: M85.80 Other specified disorders of bone density and structure, unspecified site (principal); C50.311 Malignant neoplasm of lower-inner quadrant of right female breast
CPT/HCPCS: 77080

== ENCOUNTER → 2019-04-16 | Outpatient (CLI) | payer MEDICARE, OTHER ==
--- NOTE | 2019-04-16 15:18 | US ---
EXAMINATION TYPE: US pelvic complete transvag DATE OF EXAM: 04/16/2019 COMPARISON: NONE CLINICAL HISTORY: R10.2 Pelvic pain. History of breast CA, patient went through menopause at 44 TECHNIQUE: Transvaginal (TV) and Transabdominal (TA) . Transabdominal sonographic images of the pelvis were acquired. Transvaginal sonographic images were medically necessary to better assess the following anatomy: EXAM MEASUREMENTS: Uterus: 7.7 x 1.9 x 2.9 cm Endometrial Stripe: 0.5 cm Right Ovary: Obscured by overlying bowel gas, atrophy Left Ovary: Obscured by overlying bowel gas, atrophy 1. Uterus: Anteverted wnl 2. Endometrium: Upper limits of normal , patient states she is not on any hormone but is currently taking a chemo drug 3. Right Ovary: Obscured by overlying bowel gas, atrophy 4. Left Ovary: Obscured by overlying bowel gas, atrophy 5. Bilateral Adnexa: wnl 6. Posterior cul-de-sac: wnl IMPRESSION: No suspicious findings seen to account for patient's symptoms. MTDD
== END | disposition home or self-care (01) ==
LOC: RADUSWWP 13:44
PROVIDERS: ATTEND Obstetrics & Gynecology
DX: R10.2 Pelvic and perineal pain (principal)
CPT/HCPCS: 76856

== ENCOUNTER → 2019-06-12 | Outpatient (CLI) | payer MEDICARE, OTHER ==
--- NOTE | 2019-06-12 12:40 | MM ---
Reason for exam: additional evaluation requested from prior study. Last mammogram was performed 1 year ago. History: Patient is postmenopausal, has history of breast cancer at age 68, and had first child at age 40. Family history of breast cancer in sister at age 59. Malignant MG pre op needle loc RT of the right breast, July 20, 2018. Lumpectomy of the right breast, July 20, 2018. Malignant MG stereo VAD BX RT of the right breast, July 09, 2018. Mastectomy of the right breast, 2018. Taking antineoplastic for 4 months beginning at age 68. Physical Findings: Nurse did not find any significant physical abnormalities on exam. MG 3D Diag Mammo W/Cad LT CC, MLO, and XCCL view(s) were taken of the left breast. Prior study comparison: June 11, 2018, bilateral MG 3d diag mammo w/cad [facility]. December 03, 2015, right breast MG 3d work up w/cad RT. The breast tissue is heterogeneously dense. This may lower the sensitivity of mammography. No suspicious abnormality. Two stable oval asymmetries laterally at middle depth. No significant new findings when compared with previous films. These results were verbally communicated with the patient and result sheet given to the patient on 06/12/19. ASSESSMENT: Benign, BI-RAD 2 RECOMMENDATION: Follow-up diagnostic mammogram of the left breast in 1 year.
--- NOTE | 2019-06-12 12:45 | USB ---
Reason for exam: additional evaluation requested from prior study. History: Patient is postmenopausal, has history of breast cancer at age 68, and had first child at age 40. Family history of breast cancer in sister at age 59. Malignant MG pre op needle loc RT of the right breast, July 20, 2018. Lumpectomy of the right breast, July 20, 2018. Malignant MG stereo VAD BX RT of the right breast, July 09, 2018. Mastectomy of the right breast, 2018. Taking antineoplastic for 4 months beginning at age 68. US Breast LT Left complete breast ultrasound includes all four quadrants, the retroareolar region and axilla. Finding demonstrates a 0.5 x 0.2 x 0.2cm lesion at 3 o'clock appears as a lymph node (more superficial mass), a 0.5 x 0.5 x 0.4cm lesion at 3 o'clock previously measured 0.4 x 0.3 x 0.3cm, slight growth, not definitive cyst, biopsy recommended, a 0.6 x 0.4 x 0.6cm mixed lesion at 4 o'clock, a 0.6 x 0.3 x 0.5cm mixed lesion at 10 o'clock and a 0.6 x 0.3 x 0.3cm mixed lesion at 9:45, 6 month follow up based on above biopsy results. These results were verbally communicated with the patient and result sheet given to the patient on 06/12/19. ASSESSMENT: Suspicious, BI-RAD 4 RECOMMENDATION: Ultrasound core biopsy of the left breast. Called Dr. Pickett with mammographic findings and has scheduled an appointment for the patient with Dr. Rangel. PRELIMINARY REPORT CALLED AND FAXED TO DR. RANGEL ON 06/12/19.
== END | disposition home or self-care (01) ==
LOC: RADMAMWWP 09:21
PROVIDERS: ATTEND Obstetrics & Gynecology
DX: R92.8 Other abnormal and inconclusive findings on diagnostic imaging of breast (principal); Z85.3 Personal history of malignant neoplasm of breast
CPT/HCPCS: 77065; 76641; G0279; 77061

== ENCOUNTER → 2019-07-08 | Day surgery (SDC) | payer MEDICARE, OTHER ==
[2019-07-08 13:34] VITALS: RESP 16; BMI 28.6
--- NOTE | 2019-07-08 15:09 | USB ---
EXAMINATION TYPE: US biopsy breast VAD LT, MG diagnostic mammo LT wo CAD DATE OF EXAM: 07/08/2019 CLINICAL HISTORY: R92.8 Abnormal mammogram. Abnormal ultrasound. History of right-sided breast cancer 2018. TECHNIQUE: Ultrasound guided core biopsy of left breast with clip placement follow-up diagnostic 2 view left breast mammogram. COMPARISON: Left breast ultrasound and mammogram June 12, 2019 and older mammograms FINDINGS: The procedure of ultrasound guided core biopsy was explained to the patient. Benefits, alternatives, and risks were discussed. An informed consent was then obtained. The patient was placed in supine positioning for imaging and for the procedure. Preprocedure imaging redemonstrates 4 mm vague hypoechoic area with some shadowing 3:00 position in zone a thin the left breast. The overlying skin was prepped and draped in usual sterile fashion. Lidocaine was used as anesthetic into the skin and subcutaneous tissue up to area of concern in the left breast. Lidocaine with epinephrine is used as anesthetic into the deeper tissue. Under ultrasound guidance, a 12-gauge vacuum assisted biopsy gun device was used to obtain 3 core samples. Following this, a biopsy clip was left in lesion. The patient tolerated the procedure well without any immediate complication. The patient was kept in the radiology department for short stay after the procedure and then discharged home in stable condition. Post procedure mammogram shows successful deployment of clip IMPRESSION: Successful, uncomplicated ultrasound guided core biopsy of area of concern in the breast, full pathology results to follow. Low to immediate index of suspicion noted at time of procedure. Pathology Results: Benign LEFT BREAST, ULTRASOUND GUIDED CORE BIOPSY: Fibrocystic changes including fibrosis and small cysts. Limited sample. Recommendation Follow up ultrasound of the left breast in 6 months. WANDER
[2019-07-08 15:21] VITALS: BP 141/73; PULSE 58; TEMP 98.1
== END ==
LOC: RADUSWWP 12:58
PROVIDERS: ATTEND Surgery
DX: N60.12 Diffuse cystic mastopathy of left breast (principal); R92.8 Other abnormal and inconclusive findings on diagnostic imaging of breast; Z85.3 Personal history of malignant neoplasm of breast; Z91.040 Latex allergy status
CPT/HCPCS: 88305; 77065; 19083; A4648; J2001

== ENCOUNTER → 2019-12-16 | Outpatient (CLI) | payer MEDICARE, OTHER ==
--- NOTE | 2019-12-16 13:37 | MM ---
Reason for exam: follow-up at short interval from prior study. Last mammogram was performed 5 months ago. History: Patient is postmenopausal, has history of breast cancer at age 68, and had first child at age 40. Family history of breast cancer in sister at age 59. Benign US biopsy breast VAD LT of the left breast, July 08, 2019. Malignant MG pre op needle loc RT of the right breast, July 20, 2018. Lumpectomy of the right breast, July 20, 2018. Malignant MG stereo VAD BX RT of the right breast, July 09, 2018. Mastectomy of the right breast, 2018. Taking antineoplastic for 4 months beginning at age 68. Physical Findings: Nurse did not find any significant physical abnormalities on exam. MG 3D Diag Mammo W/Cad LT CC, MLO, ML, and XCCL view(s) were taken of the left breast. Prior study comparison: July 08, 2019, left breast MG diagnostic mammo LT wo CAD. June 12, 2019, left breast MG 3d diag mammo w/cad LT. There are scattered fibroglandular densities. Previous mammotome biopsy in the left breast. Stable scattered areas of asymmetric densities. No significant new findings when compared with previous films. These results were verbally communicated with the patient and result sheet given to the patient on 12/16/19. ASSESSMENT: Benign, BI-RAD 2 RECOMMENDATION: Routine screening mammogram of the left breast in 1 year.
== END | disposition home or self-care (01) ==
LOC: RADMAMWWP 12:30
PROVIDERS: ATTEND Surgery
DX: R92.8 Other abnormal and inconclusive findings on diagnostic imaging of breast (principal)
CPT/HCPCS: 77065; G0279; 77061

== ENCOUNTER → 2020-11-10 | Outpatient (CLI) | payer MEDICARE, OTHER ==
--- NOTE | 2020-11-10 15:45 | MR ---
EXAMINATION TYPE: MR shoulder LT wo con DATE OF EXAM: 11/10/2020 COMPARISON: None HISTORY: 70-year-old female Left shoulder pain due to fall, 4 months ago. TECHNIQUE: Multiplanar, multisequence imaging of the left shoulder is performed without contrast. FINDINGS: There is abnormal signal within the intracapsular portion of the long biceps tendon extending into th e upper bicipital groove. Mild tenosynovial fluid is present. Heterogeneous signal of the subscapularis tendon. The majority of the tendon remains intact. Moderate degenerative joint space narrowing and marginal spurring at the acromioclavicular joint. Mil d inferior spurring is present, there is no significant mass effect onto the underlying myotendinous junction of the supraspinatus. Mild effusion in the subacromial/subdeltoid bursa. There is edematous change along the posterolateral deltoid musculature. There is a deep articular sided tear is centered along the mid to posterior supraspinatus tendon keyana uring 2.0 cm AP and 2.1 cm long. Otherwise, heterogeneous signal in posterior displacement and adjacent infraspinatus tendons. No full -thickness tear is identified. No atrophy of the rotator cuff musculature. There is abnormal signal extending into the superior labrum behind the biceps anchor. No paralabral c yst. Physiologic joint fluid. Glenohumeral joint shows mild diffuse cartilage thinning. No Hill-Sachs deformity or os acromiale. No suspicious bone marrow replacement. Mild patchy red marro w is present. IMPRESSION: 1. Diffuse rotator cuff tendinosis. There is a deep bursal sided tear along the mid to posterior supr aspinatus tendon measuring 2.0 x 2.1 cm involving just over 50% of the tendon thickness. No full-thic kness tear. 2. Findings suggest a split tear of the intracapsular portion of the long head biceps tendon extendin g into the upper bicipital groove. Mild tenosynovitis. 3. Moderate AC joint OA. Inferior spurring does not cause any significant mass effect onto the underl naman cuff. 4. Superior labral tear. Mild diffuse thinning of glenohumeral joint articular cartilage. 5. Prominent edema involving the posterolateral deltoid musculature suggesting soft tissue contusion or muscle strain.
== END | disposition home or self-care (01) ==
LOC: RADMRIMAIN 10:46
PROVIDERS: ATTEND Internal Medicine
DX: M19.012 Primary osteoarthritis, left shoulder (principal); M67.814 Other specified disorders of tendon, left shoulder; M75.102 Unspecified rotator cuff tear or rupture of left shoulder, not specified as traumatic; S43.432A Superior glenoid labrum lesion of left shoulder, initial encounter; M24.112 Other articular cartilage disorders, left shoulder; R60.0 Localized edema

== ENCOUNTER → 2020-12-17 | Outpatient (CLI) | payer MEDICARE, OTHER ==
--- NOTE | 2020-12-18 09:33 | MM ---
Reason for exam: additional evaluation requested from prior study. Last mammogram was performed 1 year ago. History: Patient is postmenopausal, has history of breast cancer at age 68, and had first child at age 40. Family history of breast cancer in sister at age 59. Benign US biopsy breast VAD LT of the left breast, July 08, 2019. Malignant MG pre op needle loc RT of the right breast, July 20, 2018. Lumpectomy of the right breast, July 20, 2018. Malignant MG stereo VAD BX RT of the right breast, July 09, 2018. Mastectomy of the right breast, 2018. Taking antineoplastic for 2 years beginning at age 68. Physical Findings: Nurse did not find any significant physical abnormalities on exam. MG 3D Diag Mammo W/Cad LT CC, MLO, spot compression CC, CCRM, and LM view(s) were taken of the left breast. Prior study comparison: December 16, 2019, left breast MG 3d diag mammo w/cad LT. July 08, 2019, left breast MG diagnostic mammo LT wo CAD. The breast tissue is heterogeneously dense. This may lower the sensitivity of mammography. Previous mammotome biopsy in the left breast. There is chronic nodularity in the left breast. Medial asymmetric density does not persist on spot 3D. No significant new findings when compared with previous films. These results were verbally communicated with the patient and result sheet given to the patient on 12/17/20. ASSESSMENT: Benign, BI-RAD 2 RECOMMENDATION: Follow-up diagnostic mammogram of the left breast in 1 year. Manage on a clinical basis with regard to inferior left breast pain.
== END | disposition home or self-care (01) ==
LOC: RADMAMWWP 14:56
PROVIDERS: ATTEND Surgery
DX: C50.911 Malignant neoplasm of unspecified site of right female breast (principal); Z85.3 Personal history of malignant neoplasm of breast
CPT/HCPCS: 77065; G0279; 77061

== ENCOUNTER → 2021-02-08 | Outpatient (CLI) | payer MEDICARE, OTHER ==
--- NOTE | 2021-02-08 14:03 | BD ---
EXAMINATION TYPE: Axial Bone Density DATE OF EXAM: 02/08/2021 COMPARISON: DEXA bone scan February 06, 2019 CLINICAL HISTORY: Postmenopausal female with osteopenia. Height: 5 FT 8 1/4 IN Weight: FRAX RISK QUESTIONS: Alcohol (3 or more units per day): NO Family History (Parent hip fracture): NO Glucocorticoids (More than 3mos): NO (Ex: prednisone, prednisolone, methylprednisolone, dexamethasone, and hydrocortisone). History of Fracture in Adulthood: NO Secondary Osteoporosis: 1. Type 1 Diabetes: NO 2. Hyperthyroidism: NO 3. Menopause before 45: YES 4. Malnutrition: NO 5. Chronic liver disease: NO Rheumatoid Arthritis: NO Current Tobacco Use: NO RISK FACTORS HISTORY OF: Surgery to Spine/Hip(right/left)/Wrist (right/left): LEFT HIP REPLACEMENT When: 2017 Family History of Osteoporosis: NO Active: YES Diet low in dairy products/other sources of calcium: NO Postmenopausal woman: AGE 47 Take estrogen and/or progesterone medications: NONE Lost more than 2 inches in height since high school: NO MEDICATIONS: Additional Medications: ESTROGEN SUSIE, TOPROL,LOSARTAN, PREVA STATIN, METFORMIN, Additional History: BREAST CANCER 2018 MASTECTOMY EXAM MEASUREMENTS: Bone mineral densitometry was performed using the iovox System. Bone mineral density as measured about the Lumbar spine is: ----- L1-L4(G/cm2): 1.159 T Score Values are as follows: ----- L2: -0.3 ----- L3: -0.1 ----- L4: -0.6 ----- L1-L4: -0.2 Bone mineral density has: INCREASED 3.9 % since study of: 2018 Bone mineral density about the R hip (g/cm2): 0.920 T Score values are as follows: -----R Neck: -1.4 -----R Total: -0.7 Bone mineral density has: DECREASED -0.1 % since study of: 2019 IMPRESSION: Osteopenia (T Score between -2.5 and -1) remains present femoral neck level right hip. There remains slightly increased risk of fracture and the patient may be considered for treatment. Re-Screen 2-5 years. NOTE: T-SCORE=SD OF THE YOUNG ADULT MEAN.
== END | disposition home or self-care (01) ==
LOC: RADBDWWP 12:34
PROVIDERS: ATTEND Internal Medicine Hematology & Oncology
DX: C50.311 Malignant neoplasm of lower-inner quadrant of right female breast (principal); M85.851 Other specified disorders of bone density and structure, right thigh; Z79.890 Hormone replacement therapy
CPT/HCPCS: 77080

== ENCOUNTER → 2021-12-22 | Outpatient (CLI) | payer MEDICARE, OTHER ==
--- NOTE | 2021-12-22 14:35 | MM ---
Reason for exam: additional evaluation requested from prior study. Last mammogram was performed 1 year ago. History: Patient is postmenopausal, has history of breast cancer at age 68, and had first child at age 40. Family history of breast cancer in sister at age 59. Benign US biopsy breast VAD LT of the left breast, July 08, 2019. Malignant MG pre op needle loc RT of the right breast, July 20, 2018. Lumpectomy of the right breast, July 20, 2018. Malignant MG stereo VAD BX RT of the right breast, July 09, 2018. Mastectomy of the right breast, 2017. Taking antineoplastic for 2 years beginning at age 68. Physical Findings: Nurse did not find any significant physical abnormalities on exam. MG 3D Diag Mammo W/Cad LT CC and MLO view(s) were taken of the left breast. Prior study comparison: December 17, 2020, left breast MG 3d diag mammo w/cad LT. December 16, 2019, left breast MG 3d diag mammo w/cad LT. Previous mammotome biopsy in the left breast. No significant new findings when compared with previous films. These results were verbally communicated with the patient and result sheet given to the patient on 12/22/21. ASSESSMENT: Benign, BI-RAD 2 RECOMMENDATION: Routine screening mammogram of both breasts in 1 year.
== END | disposition home or self-care (01) ==
LOC: RADMAMWWP 13:50
PROVIDERS: ATTEND Obstetrics & Gynecology
DX: R92.8 Other abnormal and inconclusive findings on diagnostic imaging of breast (principal); Z85.3 Personal history of malignant neoplasm of breast; Z78.0 Asymptomatic menopausal state; Z80.3 Family history of malignant neoplasm of breast
CPT/HCPCS: 77065; G0279; 77061

== ENCOUNTER → 2023-03-07 | Outpatient (CLI) | payer MEDICARE, OTHER ==
--- NOTE | 2023-03-08 07:36 | MM ---
Reason for Exam: Screening (asymptomatic). Last mammogram was performed 1 year(s) and 3 month(s) ago. Patient History: Menarche at age 15. First Full-Term at age 40. Late child-bearing (after 30). Postmenopausal. Patient has history of breast feeding. Breast cancer, right, age 68. 07/20/2018, Lumpectomy on the Right side. 2017, Mastectomy on the Right side. 07/08/2019, Benign Core Biopsy on the left side. 07/20/2018, Malignant Core Biopsy on the right side. 07/09/2018, Malignant Core Biopsy on the right side. Sister had breast cancer, age 59. Prior Study Comparison: 12/16/2019 Left Diagnostic Mammogram, [facility]. 12/17/2020 Left Diagnostic Mammogram, [facility]. 12/22/2021 Left Diagnostic Mammogram, [facility]. Tissue Density: Left: The breast tissue is heterogeneously dense. This may lower the sensitivity of mammography. Findings: Previous mammotome biopsy left breast. Chronic nodularity within the left breast. No significant change from prior exams. No new suspicious mass or group of microcalcifications within the left breast. Overall Assessment: Benign, BI-RAD 2 Management: Screening Mammogram of the left breast in 1 year. A clinical breast exam by your physician is recommended on an annual basis and results should be correlated with mammographic findings. Electronically signed and approved by: Sudhir Frye D.O.
== END | disposition home or self-care (01) ==
LOC: RADMAMWWP 14:46
PROVIDERS: ATTEND Obstetrics & Gynecology
DX: Z12.31 Encounter for screening mammogram for malignant neoplasm of breast (principal); Z78.0 Asymptomatic menopausal state; Z80.3 Family history of malignant neoplasm of breast
CPT/HCPCS: 77067

== ENCOUNTER → 2023-03-30 | Outpatient (CLI) | payer MEDICARE, OTHER ==
--- NOTE | 2023-03-30 15:40 | BD ---
EXAMINATION TYPE: Axial Bone Density DATE OF EXAM: 03/30/2023 CLINICAL HISTORY: 72 years old Female. ICD-10 CODE: C50.311 MALIG NEOPLM OF LOWER-INNER QUADRANT OF [place] Height: 67.5 Weight: 190 FRAX RISK QUESTIONS: Family History (Parent hip fracture): no History of Fracture in Adulthood: no Secondary Osteoporosis: yes 3. Menopause before 45: yes RISK FACTORS HISTORY OF: Surgery to Hip(left): yes When: 2017no Family History of Osteoporosis: no Active: yes Diet low in dairy products/other sources of calcium: yes Postmenopausal woman: yes Lost more than 2 inches in height since high school: yes Frequent falls: no Poor Health: no MEDICATIONS: Additional Medications: yes diabetic meds, hbp, anastrozole, depression meds, multi vit, calcium , pain meds, cholesterol Additional History: yes dcis 2018 EXAM MEASUREMENTS: Bone mineral densitometry was performed using the [employer] System. Bone mineral density as measured about the Lumbar spine is: ----- L1-L4(G/cm2): 1.153 T Score Values are as follows: ----- L1: 0.2 ----- L2: -0.2 ----- L3: -0.8 ----- L4: -0.2 ----- L1-L4: -0.2 Z Score Values are as follows: ----- L1: 1.2 ----- L2: 0.8 ----- L3: 0.2 ----- L4: 0.8 ----- L1-L4: 0.7 Bone mineral density has: Decreased -0.5% since study of: 02/08/2021 Bone mineral density about the R hip (g/cm2): 0.897 T Score values are as follows: -----R Neck: -1.3 -----R Total: -0.9 Z Score values are as follows: -----R Neck: -0.1 -----R Total: 0.1 Bone mineral density has: Decreased -2.5% since study of: 02/08/2021 FRAX%s: The graph provided illustrates a 9.5% chance for a major osteoporotic fx and a 1.3% chance fo r the hips probability for fx in 10 years time. IMPRESSION: Osteopenia (T Score between -2.5 and -1). There is slightly increased risk of fracture and the patient may be considered for treatment. Re-Screen 2-5 years. NOTE: T-SCORE=SD OF THE YOUNG ADULT MEAN.
== END | disposition home or self-care (01) ==
LOC: RADBDWWP 14:31
PROVIDERS: ATTEND Internal Medicine Hematology & Oncology
DX: C50.311 Malignant neoplasm of lower-inner quadrant of right female breast (principal); M85.851 Other specified disorders of bone density and structure, right thigh; Z78.0 Asymptomatic menopausal state
CPT/HCPCS: 77080

== ENCOUNTER → 2023-08-30 | Outpatient (CLI) | payer MEDICARE, OTHER ==
--- NOTE | 2023-08-30 12:32 | P.SLEEP ---
History of Present Illness DATE: 08/30/2023 CONSULTATION/NEW PATIENT EVALUATION HISTORY OF PRESENT ILLNESS/SLEEP-WAKE EVALUATION: 73-year-old lady had been ev aluated in the sleep center for obstructive sleep apnea hypopnea syndrome. Patient had been diagnosed with obstructive sleep apnea about 17 years ago, was recommended to use CPAP, but she did not get her CPAP at that time in late the she started to use CPAP unit of her , which she continued to use until now. SLEEP SCHEDULE: Usually sleep schedule from 11 PM until 7:30 AM. FALLING ASLEEP: Usually no significant problems with falling asleep. DURING SLEEP: Patient has history of loud snoring and multiple awakenings from sleep up to 5 times with 2 episodes of nocturia if she is not using CPAP. Positive history of restless leg symptoms No history of hypnogogical hallucinations, sleep paralysis, or cataplexy. DURING THE DAY/WAKE STATE: Patient has significant excessive daytime sleepiness. [place] sleepiness scale is increased to 17. Patient may take up to 2 naps during the day. PAST MEDICAL HISTORY: Hypertension, diabetes mellitus, anxiety, depression, right breast cancer. PAST SURGICAL HISTORY: Right breast mastectomy, left hip replacement, bowel surgery for blockage. MEDICATIONS: Losartan 50 mg once a day, hydrochlorothiazide 12.5 mg once a day, metformin 500 mg twice a day, metoprolol 25 mg once a day, pravastatin 40 mg once a day, clonazepam 0.5 mg once a day, glimepiride 0.2 mg once a day. SOCIAL HISTORY: Positive history of smoking for about 6 pack years quit 34 years ago, alcohol consumption occasional. FAMILY HISTORY: Hypertension, heart problems, stroke, diabetes. REVIEW OF SYSTEMS: Awakenings from sleep, snoring, sleepiness during the day. No fevers. No double vision. No recent chest pain. No shortness of breath. No abdominal pain. No bleeding episodes. No blood in urine. No seizure episodes. PHYSICAL EXAMINATION: GENERAL: A pleasant patient without any distress. VITAL SIGNS: BP 151/71, HR 54, RR 14, weight 193.2 pounds, height 5 foot 8-1/4 inches, body mass index 29.0. HEENT: PERRLA, EOMI. Evaluation of oropharynx showed tongue protrudes midline, low position of soft palate Mallampati 4. NECK: Supple. No JVD. Thyroid is not palpable. 4 inches in circumference. LUNGS: Clear to percussion and to auscultation. Good air exchange. No wheezing or rhonchi. HEART: S1, S2 regular. No murmurs, gallops or rubs. ABDOMEN: Soft and nontender. Bowel sounds are present. No organomegaly appreciated. EXTREMITIES: No clubbing or cyanosis. POULTRY BARN MANAGER: Awake, alert, and oriented x3. Cranial nerves 2 to 7 intact. There is no fasciculation or atrophy noted. No focal deficits observed. ASSESSMENT: 1. Loud snoring, multiple awakenings from sleep, extremely low position of soft palate Mallampati 4, sleepiness with [place] Sleepiness Scale 17. Obstructive sleep apnea hypopnea syndrome. 2. Hypertension. 3. diabetes mellitus. 4. . Anxiety. 6 . depression 7. history of right breast cancer, status post right mastectomy. 8. Status post left hip replacement. 9 . status post bowel surgery. 10. overweight, body mass index 29.0. PLAN: 1. Polysomnography for evaluation of patient's breathing during sleep. 2. CPAP/BiPAP titration if sleep study confirms obstructive sleep apnea- hypopnea syndrome. 3. Preferable position during sleep on the side. 4. No driving if patient feels any sleepiness. Patient is aware of civil and criminal liability for unsafe driving. 5. Sleep hygiene with regular sleep time for at least 7.5-8 hours. 6. Watching and losing weight. Thank you very much for referring this patient for consultation. Sincerely, Ricci Rojas MD, PhD, FAASM. Diplomat of [place] [employer], Sleep Medicine Board by [place] [employer] [place] [employer] Front Desk Host of [facility] [place] Past Medical History Past Medical History: Cancer, Diabetes Mellitus, Hyperlipidemia, Hypertension, Musculoskeletal Disorder, Osteoarthritis (OA), Sleep Apnea/CPAP/BIPAP Additional Past Medical History / Comment(s): bulging disc in back. Right breast cancer-2018 History of Any Multi-Drug Resistant Organisms: None Reported Past Surgical History: Breast Surgery, Cholecystectomy, Orthopedic Surgery Additional Past Surgical History / Comment(s): BOWEL SURGERY TO REMOVE SCAR TISSUE FROM PREVIOUS OVARIAN CYST. Left hip replacement 2017. Right Mastectomy 08/07/18 Past Anesthesia/Blood Transfusion Reactions: Blood Transfusion Reaction Additional Past Anesthesia/Blood Transfusion Reaction / Comment(s): HIVES FROM BLOOD TRANSFUSION YEARS AGO. Past Psychological History: Anxiety Past Alcohol Use History: Occasional Additional Past Alcohol Use History / Comment(s): Quit smoking 30 yrs ago, smoked for 10 yrs, <1 PPD. Past Drug Use History: None Reported - Past Family History Sister(s) Family Medical History: Cancer Medications and Allergies Home Medications Medication Instructions Recorded Confirmed Type Metoprolol Succinate [Toprol XL] 25 mg PO HS 04/15/14 07/08/19 History Multivitamin/Iron/Folic Acid 1 tab PO DAILY 04/15/14 07/08/19 History [Centrum Complete Multivit Tab] Pravastatin Sodium [Pravachol] 80 mg PO HS 04/15/14 07/08/19 History clonazePAM [KlonoPIN] 0.5 mg PO HS 04/15/14 07/08/19 History Aspirin [Adult Low Dose Aspirin EC] 81 mg PO HS 05/22/17 07/08/19 History Cranberry Fruit Extract [Cranberry] 500 mg PO DAILY 05/22/17 07/08/19 History Anastrozole [Arimidex] 1 mg PO DAILY 06/25/19 07/08/19 History Calcium Carbonate/Vitamin D3 1 tablet PO DAILY 06/25/19 07/08/19 History [Calcium 500-Vit D3 200 Tablet] DULoxetine HCL [Cymbalta] 20 mg PO DAILY 06/25/19 07/08/19 History Losartan [Cozaar] 25 mg PO DAILY 06/25/19 07/08/19 History metFORMIN HCL ER [Glucophage XR] 500 mg PO DAILY 06/25/19 07/08/19 History Allergies Allergy/AdvReac Type Severity Reaction Status Date / Time latex Allergy Itching Verified 07/08/19 13:22 Sleep Note - Sleep Note Sleep Note: Temperature: Pulse Rate: Respiratory Rate: Blood Pressure: SpO2: Height: Weight: BMI: Neck Circumference:
== END ==
LOC: 3 N SLEEP 10:30
PROVIDERS: ATTEND Internal Medicine
DX: G47.33 Obstructive sleep apnea (adult) (pediatric) (principal); I10 Essential (primary) hypertension; E11.9 Type 2 diabetes mellitus without complications; F41.9 Anxiety disorder, unspecified; F32.A Depression, unspecified; Z85.3 Personal history of malignant neoplasm of breast; Z90.11 Acquired absence of right breast and nipple; Z96.642 Presence of left artificial hip joint; Z91.040 Latex allergy status; Z79.84 Long term (current) use of oral hypoglycemic drugs; Z79.82 Long term (current) use of aspirin; Z79.899 Other long term (current) drug therapy; Z87.891 Personal history of nicotine dependence; Z90.49 Acquired absence of other specified parts of digestive tract
CPT/HCPCS: 99211

== ENCOUNTER 2023-10-12 19:16 | Outpatient (CLI) | payer MEDICARE, OTHER ==
--- NOTE | 2023-10-18 12:28 | P.PCN ---
Description of Procedure: POLYSOMNOGRAPHY REPORT PROCEDURE(S)/DATE(S): Polysomnography 10/12/2023 CLINICAL: Patient has been seen in the sleep center for evaluation of obstructive sleep apnea-hypopnea syndrome. Please see my consultation. Sleep study has been done for evaluation of patient breathing during the sleep. PROCEDURE: The standard montage for clinical polysomnography included the electroencephalogram, the electrooculogram, the mentalis surface electromyography and Lead II cardiography. The respiratory battery consisted of measurements of nasal/buccal air flow, pressure transducer measurements from nose, thoracic and/or abdominal effort and intercostal surface electromyography. Video monitoring has been done to check for any parasomnia events. Nocturnal oxyhemoglobin saturations were obtained by finger oximetry. Step-aden titration with positive airway pressure was utilized to control the respiratory events, if necessary. RESULTS: During the diagnostic sleep study sleep efficiency was extremely short 66.7 %. Latency to sleep onset was borderline 29.5 min. Sleep architecture s howed stage NI was significantly increased to 19.2 %, Delta sleep was practically absent 0.3 %, REM sleep was short only 6.3 %. Respiratory channel showed 17 obstructive apneas, 0 mixed apneas, 0 central apneas, 20 hypopneas with lowest oxygen level 86%. Total apnea hypopnea index was 7.8. Heart rate was in the range between 55 and 63, average 59 by computer calculation. EMG showed 1.0 periodic limb movements. IMPRESSIONS: 1. Obstructive sleep apnea hypopnea syndrome. 2. No significant periodic limb movements have been documented. Please see other impressions from consultation PLAN: 1. The patient will have AutoPAP treatment for correction of respiratory abnormalities during the sleep. 2. Losing weight program. 3. Sleep hygiene with regular time in bed for at least 7-1/2 hours. 4. No driving if feeling sleepiness. 5. I will see patient for follow-up visit to relate clinical response on treatment, compliance with treatment and make any necessary adjustments related to mask fitting, pressure and humidification. Thank you very much for allowing me to participate in the management of your patient. Sincerely, Ricci Rojas MD, PhD, FAASM. Diplomat of [place] [employer], Sleep Medicine Board by [place] [employer] Court Reporter of [facility] [place]
== END 2023-10-13 06:00 | disposition home or self-care (01) ==
LOC: 3 N SLEEP 19:16
PROVIDERS: ATTEND Internal Medicine
DX: G47.33 Obstructive sleep apnea (adult) (pediatric) (principal); G47.61 Periodic limb movement disorder; Z99.89 Dependence on other enabling machines and devices; Z91.040 Latex allergy status; Z87.891 Personal history of nicotine dependence
CPT/HCPCS: 95810

== ENCOUNTER → 2023-12-20 | Outpatient (CLI) | payer MEDICARE, OTHER ==
--- NOTE | 2023-12-20 22:03 | US ---
EXAMINATION TYPE: US pelvic complete DATE OF EXAM: 12/20/2023 COMPARISON: NONE CLINICAL INDICATION: Female, 73 years old with history of R10.2 PELVIC AND PERINEAL PAIN; Dull pelvic pain. . Hx 2 miscarriages, history breast cancer. TECHNIQUE: Transabdominal sonographic images of the pelvis were acquired. Transvaginal sonographic images were not performed, patient did not want transvaginal exam. Date of LMP: 30 years ago per patient. EXAM MEASUREMENTS: Uterus: 7.4 x 3.6 x 2.6 cm Endometrial Stripe: 0.41 cm Right Ovary: Obscured Left Ovary: Obscured 1. Uterus: Anteverted 2. Endometrium: Measures 0.41 cm. 3. Right Ovary: Not visualized 4. Left Ovary: Not visualized 5. Bilateral Adnexa: Appear wnl 6. Posterior cul-de-sac: Appears wnl IMPRESSION: 1. Thin endometrial stripe at 4.1 mm in keeping with postmenopausal status. 2. Unable to visualize either ovary probably due to combination of bowel gas and small postmenopausal size. 3. No pelvic free fluid.
== END | disposition home or self-care (01) ==
LOC: RADUSWWP 14:13
PROVIDERS: ATTEND Obstetrics & Gynecology
DX: R10.2 Pelvic and perineal pain (principal); Z85.3 Personal history of malignant neoplasm of breast; Z78.0 Asymptomatic menopausal state
CPT/HCPCS: 76856

== ENCOUNTER → 2024-01-24 | Outpatient (CLI) | payer MEDICARE, OTHER ==
[2024-01-24 14:01] VITALS: BP 134/51; PULSE 57; RESP 12; TEMP 97.9
--- NOTE | 2024-01-24 14:11 | P.PN ---
Subjective DATE: 01/24/2024 FOLLOW UP VISIT. Patient with obstructive sleep apnea hypopnea syndrome return to sleep center for follow-up visit. Information from previous visit have been reviewed. This is first visit after patient received CPAP equipment. Patient is using PAP equipment every night for the whole night. Patient feels better after starting to use CPAP equipment, not so sleepy during the day as before The patient does not have significant problems with the mask, PAP unit and humidification. [place] sleepiness scale is still increased to 15. I checked information from PAP unit. PAP unit pressure 5-13, average 10 cm H2O. Usage is 98% for more then 4 hours. Leak is 10 l/m, which is in acceptable range. Apnea Hypopnea Index is 2.0, which is normal. MEDICATIONS have been reviewed, please see list of medications in the hospital patient's data. During physical exam: GENERAL: A pleasant patient without any distress. VITAL SIGNS: Please see below. HEENT: PERRLA, EOMI.low position of soft palate, Mallapati 4 . NECK: Supple. No JVD. LUNGS: Clear to percussion and to auscultation. Good air exchange. No wheezing or rhonchi. HEART: S1, S2 regular. ABDOMEN: Soft and nontender.[] EXTREMITIES: No clubbing or cyanosis. CLIENT PROJECT COORDINATOR: Awake, alert, and oriented x3. No focal deficit. Impressions: 1. Obstructive sleep apnea-hypopnea syndrome. Patient demonstrated great compliance with treatment, benefiting from treatment. 2. Hypertension. 3. Diabetes mellitus. 4. History of anxiety. 5. History of depression. 6. History of breast cancer, status post right mastectomy. 7. Status post left hip replacement. 8. Status post bowel surgery. 9. Overweight. Plan: 1. Continue using PAP equipment every night for the whole night. 2. To change air filter at least 1-2 times per month. 3. PAP unit should stay lower then position of the head. 4. Advised patient to remove all remaining water from humidifier canister daily and make it dry after each usage. Refill canister with fresh distilled water before each usage. 5. Sleep hygiene with regular time in bed for at least 8 hours. 6. Precautions related to driving. No driving if feel any sleepiness. 7. I will maintain prescription for PAP supplies including mask, tube, filters. 8. Watching weight. 9. Follow up visit in 6 months or earlier if patient has any problems. Thank you very much for allowing me to participate in the management of your patient. Ricci Rojas MD, PhD, FAASM. Diplomat of [place] [employer], Sleep Medicine Board by [place] [employer] Welcome Hostess of [facility] [place] Objective - Vital Signs Vital signs: Vital Signs Temp 97.9 F 01/24/24 13:33 Pulse 57 L 01/24/24 13:33 Resp 12 01/24/24 13:33 BP 134/51 01/24/24 13:33 Pulse Ox 97 01/24/24 13:33 FiO2 Intake & Output 01/23/24 01/24/24 01/24/24 18:59 06:59 18:59 Weight 87.543 kg
== END ==
LOC: 3 N SLEEP 12:44
PROVIDERS: ATTEND Internal Medicine
DX: G47.33 Obstructive sleep apnea (adult) (pediatric) (principal); I10 Essential (primary) hypertension; E11.9 Type 2 diabetes mellitus without complications; F32.A Depression, unspecified; F41.9 Anxiety disorder, unspecified; E66.3 Overweight; Z85.3 Personal history of malignant neoplasm of breast; Z90.11 Acquired absence of right breast and nipple; Z96.642 Presence of left artificial hip joint; Z98.890 Other specified postprocedural states; Z99.89 Dependence on other enabling machines and devices; Z91.040 Latex allergy status; Z79.899 Other long term (current) drug therapy; Z79.82 Long term (current) use of aspirin; Z79.84 Long term (current) use of oral hypoglycemic drugs; Z87.891 Personal history of nicotine dependence
CPT/HCPCS: 99212

== ENCOUNTER → 2024-08-01 | Outpatient (CLI) | payer MEDICARE, OTHER ==
[2024-08-01 13:47] VITALS: BP 132/55; PULSE 66; RESP 18; TEMP 98.4
--- NOTE | 2024-08-01 17:44 | P.PROGSL ---
Subjective DATE: 08/01/2024 FOLLOW UP VISIT. Patient with obstructive sleep apnea hypopnea syndrome return to sleep center for follow-up visit. Information from previous visit have been reviewed. Patient is using PAP equipment every night for the whole night, getting PAP supplies in time. The patient does not have significant problems with the mask, PAP unit and humidification. [place] sleepiness scale is slightly increased to 11. I checked information from PAP unit. PAP unit pressure 5-13, average 10.2 cm H2O. Usage is 100% for more then 4 hours, average 7.7 hours per night. Leak is 10 l/m, which is in acceptable range. Apnea Hypopnea Index is 1.4, which is normal. MEDICATIONS have been reviewed, please see below. During physical exam: GENERAL: A pleasant patient without any distress. VITAL SIGNS: Please see below, weight is 185.2 lbs. HEENT: PERRLA, EOMI.low position of soft palate, Mallapati 4 . NECK: Supple. No JVD. LUNGS: Clear to percussion and to auscultation. Good air exchange. No wheezing or rhonchi. HEART: S1, S2 regular. ABDOMEN: Soft and nontender.[] EXTREMITIES: No clubbing or cyanosis. DYE REEL OPERATOR HELPER: Awake, alert, and oriented x3. No focal deficit. Impressions: 1. Obstructive sleep apnea-hypopnea syndrome. Patient demonstrated great compliance with treatment, benefiting from treatment. 2. Hypertension. 3. Diabetes mellitus, recent hemoglobin A1c around 7. 4. History of anxiety. 5. History of depression. 6. Status post right mastectomy for breast cancer. 7. Status post left hip replacement. 8. Status post bowel surgery. Plan: 1. Continue using PAP equipment every night for the whole night. 2. Sleep hygiene with regular time in bed for at least 7.5-8 hours 3. PAP unit should stay lower then position of the head. 4. Advised patient to remove all remaining water from humidifier canister daily and make it dry after each usage. Refill canister with fresh distilled water before each usage. 5. Watching weight. 6. Precautions related to driving. No driving if feel any sleepiness. 7. I will maintain prescription for PAP supplies including mask, tube, filters. 8. Follow up visit in 8 months or earlier if patient has any problems. Thank you very much for allowing me to participate in the management of your patient. Ricci Rojas MD, PhD, FAASM. Diplomat of [place] [employer], Sleep Medicine Board by [place] [employer] Street Light Repairer of [facility] [place] Objective - Vital Signs Vital Signs: Vital Signs Temp 98.4 F 08/01/24 13:46 Pulse 66 08/01/24 13:46 Resp 18 08/01/24 13:46 BP 132/55 08/01/24 13:46 Pulse Ox 96 08/01/24 13:46 FiO2 Intake & Output 07/31/24 08/01/24 08/01/24 18:59 06:59 18:59 Weight 83.971 kg Home Medications: Home Medications Medication Instructions Recorded Confirmed Type Metoprolol Succinate [Toprol XL] 20 mg PO HS 04/15/14 08/01/24 History Multivitamin/Iron/Folic Acid 1 tab PO DAILY 04/15/14 08/01/24 History [Centrum Complete Multivit Tab] Pravastatin Sodium [Pravachol] 80 mg PO HS 04/15/14 08/01/24 History clonazePAM [KlonoPIN] 0.5 mg PO HS 04/15/14 08/01/24 History Aspirin [Adult Low Dose Aspirin EC] 81 mg PO HS 05/22/17 08/01/24 History Cranberry Fruit Extract [Cranberry] 500 mg PO DAILY 05/22/17 07/08/19 History Anastrozole [Arimidex] 1 mg PO DAILY 06/25/19 08/01/24 History Calcium Carbonate/Vitamin D3 1 tablet PO DAILY 06/25/19 08/01/24 History [Calcium 500-Vit D3 200 Tablet] DULoxetine HCL [Cymbalta] 20 mg PO DAILY 06/25/19 08/01/24 History Losartan [Cozaar] 50 mg PO DAILY 06/25/19 08/01/24 History metFORMIN HCL ER [Glucophage XR] 500 mg PO DAILY 06/25/19 08/01/24 History Ezetimibe [Zetia] 10 mg PO DAILY 08/01/24 08/01/24 History Glimepiride 2 mg PO DAILY 08/01/24 08/01/24 History Montelukast [Singulair] 10 mg PO DAILY 08/01/24 08/01/24 History hydroCHLOROthiazide [Hydrodiuril] 12.5 mg PO DAILY 08/01/24 08/01/24 History
== END ==
LOC: 3 N SLEEP 13:11
PROVIDERS: ATTEND Internal Medicine
DX: G47.33 Obstructive sleep apnea (adult) (pediatric) (principal); I10 Essential (primary) hypertension; E11.9 Type 2 diabetes mellitus without complications; Z86.59 Personal history of other mental and behavioral disorders; Z85.3 Personal history of malignant neoplasm of breast; Z90.11 Acquired absence of right breast and nipple; Z96.642 Presence of left artificial hip joint; Z98.890 Other specified postprocedural states; Z99.89 Dependence on other enabling machines and devices; Z91.040 Latex allergy status; Z79.84 Long term (current) use of oral hypoglycemic drugs; Z79.899 Other long term (current) drug therapy; Z87.891 Personal history of nicotine dependence
CPT/HCPCS: 99212

== ENCOUNTER → 2024-11-12 | Outpatient (CLI) | payer MEDICARE, OTHER | END | disposition home or self-care (01) | LOC: RADMAMWWP 14:48 | PROVIDERS: ATTEND Internal Medicine | DX: Z53.9 Procedure and treatment not carried out, unspecified reason (principal) ==